=== PATIENT | male | born 1940 | race Caucasian/White ===

== ENCOUNTER → 2017-03-03 | Day surgery (SDC) | payer MEDICARE ==
[2017-03-02 15:53] VITALS: BMI 23.1
[~2017-03-03] MED LIST: Acetaminophen/Codeine 30-300mg Tablet ONE; Iopamidol-M 200 41% 20 ML VIAL ONE
[2017-03-03 07:59] VITALS: TEMP 97.4
--- NOTE | 2017-03-03 11:29 | RAD ---
CERVICAL SPINE MYELOGRAM: Date: 03/03/17 HISTORY: Cervical radiculopathy. COMPARISON: None. FINDINGS: Initial 2 view rag production worker cervical spine radiograph demonstrates extensive degenerative change with poste rior element hypertrophy. Note is made of an incompletely evaluated left-sided defibrillator. Two rag production worker views of the lumbar spine demonstrate a significant fusion throughout the lumbar spine wit h near complete effusion of the posterior elements. Despite multiple attempts, unsuccessful lumbar puncture. Needle was advanced at multiple levels. How ever, CSF did not flow into the hub of the needle. Myelogram could not be performed. TECHNIQUE: Consent obtained to perform a lumbar puncture for intrathecal contrast administration. Patient's samantha k was evaluated. Access into the thecal sac was attempted at multiple levels. However, advancement o f the needle was limited. At L5-S1, the needle did appear to go beyond the facet. However, flow of C SF was not obtained. There were no immediate postprocedural complications. IMPRESSION: Unsuccessful lumbar puncture due to sever fusion of the posterior elements. Correlation made with [facility] CT from 03/17/09 does not demonstrate any access points. Therefore, CT guided lumbar puncture would not be feasible. Results of study discussed with Dr. Romo on 03/03/17 at 0936 hours. CODE CR. POS: [facility]
--- NOTE | 2017-03-03 16:21 | CT ---
CERVICAL SPINE ATTEMPTED MYELOGRAM AND POST MYELOGRAPHIC CT: 03/03/17 HISTORY: Patient with cardiac pacing device with arm weakness, new onset. We have been asked to perform cervi maren spine myelogram. C1-2 myelography was attempted. RADIATION DOSIMETRY: 8.7 minutes of fluoroscopy and 23.4 Gy*cm2 DAP. Informed consent was obtained from the patient and his . The L1-2 areas was prepped and draped i n the usual sterile manner. A 15 lidocaine solution was used to anesthetize the overlying soft tiss ues. A 22 gauge spinal needle was placed along the posterior aspect of the C1-2 spinal canal. Approx imately 5 mL of contrast was injected. This was seen opacifying the central canal. The patient was t hen taken to CT scanner where postprocedure CT was performed. On CT, it is noted that the contrast is within the epidural space rather than the subarachnoid space . C1-2: Unremarkable. C2-3: There is a broad based disc osteophyte complex at C2-3 compressing the thecal sac. Bilateral f acet hypertrophy is seen. This results in moderate to severe right C2-3 neural foraminal narrowing. The left neural foramen is patent. The patient has extensive multilevel spinal stenosis. It is not surprisingly that I could not enter the subarachnoid space due to the severe multilevel stenosis of this patient resulting in a minimal subarachnoid space outside of the cord. C3-4: There is disc desiccation. There is a broad based disc osteophyte complex centrally resulting in critical C3-4 central spinal stenosis with anterior compression of the spinal cord at C3-4. There is also moderate to severe bilateral C3-4 neural foraminal narrowing due to facet hypertrophy as we ll as uncovertebral osteophyte hypertrophy. C4-5: There is a broad based disc osteophyte complex centrally compressing the thecal sac resulting in severe central spinal stenosis and thecal sac compression. There is severe right and moderate to severe left C4-5 neural foraminal narrowing due to uncovertebral as well as facet hypertrophy. C5-6: There is disc desiccation and disc space height loss. There is an extensive central and right paracentral bridging osteophyte posteriorly as well as anteriorly. The posterior osteophyte compress es the thecal sac resulting in moderate to severe right and moderate left sided lateral recess steno sis. There is moderate to severe right and moderate left sided C5-6 neural foraminal narrowing due t o uncovertebral osteophyte hypertrophy. C6-7: Broad based disc osteophyte complex is seen compressing the thecal sac resulting in moderate t o severe central spinal stenosis. There is moderate to severe right and moderate left sided C6-7 tri ral foraminal narrowing due to uncovertebral osteophyte hypertrophy. C7-T1: Broad based posterior osteophyte is seen. No significant central stenosis seen. The neural fo ramen are patent. There is also severe right distal common carotid and proximal right ICA calcifications. Postsurgical changes seen in the left carotid. IMPRESSION: Severe multilevel C2-3, C3-4, C4-5 and C5-6 and to a lesser degree C6-7 central spinal stenosis. Mul tilevel neural foraminal narrowing also seen. POS: MED
== END ==
LOC: RAD 06:42
PROVIDERS: ATTEND Neurological Surgery
DX: M48.02 Spinal stenosis, cervical region (principal); M54.12 Radiculopathy, cervical region; M19.019 Primary osteoarthritis, unspecified shoulder; E11.9 Type 2 diabetes mellitus without complications; I10 Essential (primary) hypertension; J44.9 Chronic obstructive pulmonary disease, unspecified; I25.10 Atherosclerotic heart disease of native coronary artery without angina pectoris; G14 Postpolio syndrome; Z95.5 Presence of coronary angioplasty implant and graft; Z98.890 Other specified postprocedural states; Z87.891 Personal history of nicotine dependence; Z79.4 Long term (current) use of insulin; Z79.82 Long term (current) use of aspirin; Z79.899 Other long term (current) drug therapy
CPT/HCPCS: 62302; 72126; 77003

== ENCOUNTER 2017-04-20 09:29 | Inpatient (IN) | payer MEDICARE ==
[2017-04-20] MEDS ORDERED: Bacitracin Zinc Ointment 30 gm TUBE ONE ×2 (12:11→12:37)
[2017-04-20] MEDS ORDERED: CEFAZOLIN/Water 2 GM/20 ML SYRINGE ONE (12:11)
[2017-04-20 12:16] LABS: #Eosinphils 0.1 thou/uL (0.0-0.7); #Lymphocytes 2.2 thou/uL (1.20-3.40); #Monocytes 0.9 thou/uL (0.11-0.59); %Basophils 0.5 % (0.0-1.0); %Eosinophils 1.6 % (0.0-10.0); %Lymphocytes 26.8 % (21.0-51.0); %Monocytes 10.4 % (0.0-10.0); Hematocrit 33.4 % (42.0-52.0); Mean Platelet Volume 6.4 fL (7.4-10.4); Red Blood Cell (RBC) Count 3.62 mill/uL (4.70-6.10); White Blood Cell (WBC) Count 8.1 thou/uL (4.8-10.8)
[2017-04-20 12:37] LABS: Anion Gap 14 mmol/L (10-20); BUN (Urea Nitrogen) 24 mg/dL (8.4-25.7); Calc. Creatinine Clearance 117 mL/min (70-130); Calcium 9.9 mg/dL (7.8-10.44); Carbon Dioxide 24 mmol/L (23-31); Chloride 104 mmol/L (98-107); Estimated GFR-MDRD Greater than 90
[2017-04-20] MEDS ORDERED: Fentanyl 250 MCG/5 ML VIAL ONE (12:54)
[2017-04-20] MEDS ORDERED: Lidocaine 1% PF 5 ML VIAL ONE (13:23)
[2017-04-20] MEDS ORDERED: PHENYLEPHRINE-NS 100 MCG/ML 10 ML SYRINGE ONE (13:23)
[2017-04-20] MEDS ORDERED: Dexamethasone 20 MG/5 ML VIAL ONE (13:23)
[2017-04-20] MEDS ORDERED: ePHEDrine/0.9% NaCl/PF SYRINGE 50 mg/10 ml ONE (13:23)
[2017-04-20] MEDS ORDERED: Ondansetron HCl/PF 4 MG/2 ML Vial ONE (13:23)
[2017-04-20] MEDS ORDERED: Glycopyrrolate 0.2 MG/ML 5 ML SYRINGE ONE (13:23)
[2017-04-20] MEDS ORDERED: Propofol 200 MG/20 ML VIAL ONE (13:23)
[2017-04-20] MEDS ORDERED: Sodium Chloride 0.9% 10 ML ONE (13:32)
[2017-04-20] MEDS ORDERED: Phenylephrine 10 MG/NS 250 ML 250 ML ONE (13:42)
[2017-04-20] MEDS ORDERED: Fentanyl 100 MCG/2 ML VIAL ONE ×3 (15:23→16:30)
[2017-04-20] MEDS ORDERED: Acetaminophen/Codeine 30-300mg Tablet PO PRN (15:54)
[2017-04-20] MEDS ORDERED: PROVENTIL INHALER 6.7 G (200 INHALATIONS) INH PRN (15:54)
[2017-04-20] MEDS ORDERED: Ketorolac Tromethamine 30 MG/ML VIAL ONE (15:54)
[2017-04-20] MEDS ORDERED: CHLORPHENIRAMINE MALEATE 4 MG TABLET PO PRN (15:57)
[2017-04-20] MEDS ORDERED: cloNIDine 0.1 MG TAB PO PRN (16:01)
[2017-04-20] MEDS ORDERED: Milk Of Magnesia 30 ML UDCUP PO PRN (16:02)
[2017-04-20] MEDS ORDERED: diphenhydrAMINE 50 MG/ML VIAL IVP PRN (16:02)
[2017-04-20] MEDS ORDERED: Mag-Al 1200 mg/1200 mg/30 ML UDCUP PO PRN (16:02)
[2017-04-20] MEDS ORDERED: diphenhydrAMINE 25 MG CAP PO PRN (16:02)
[2017-04-20] MEDS ORDERED: Meperidine HCl/PF 25 MG/ML VIAL SLOW IVP PRN (16:02)
[2017-04-20] MEDS ORDERED: Bisacodyl 10 MG SUPP PR PRN (16:02)
[2017-04-20] MEDS ORDERED: HYDROcodone/Acetaminophen 10/325 mg Tablet PO PRN (16:02)
[2017-04-20] MEDS ORDERED: Promethazine HCl 25 MG/ML VIAL IM PRN (16:02)
[2017-04-20] MEDS ORDERED: Promethazine HCl 12.5 MG SUPP PR PRN (16:02)
[2017-04-20] MEDS ORDERED: Ondansetron HCl/PF 4 MG/2 ML Vial SLOW IVP PRN (16:03)
[2017-04-20] MEDS ORDERED: Sodium Chloride 0.65% Nasal 44 ML BOT EA NARE PRN (16:11)
[2017-04-20] MEDS ORDERED: Promethazine HCl 25 MG/ML VIAL IM/IV PRN (16:30)
[2017-04-20] MEDS ORDERED: Ondansetron HCl/PF 4 MG/2 ML Vial IVP PRN (16:30)
--- NOTE | 2017-04-20 17:05 | OP ---
DATE OF OPERATION: 04/20/2017 SURGEON: Vlad Romo M.D. HOTEL ENGINEER: Gelacio Lee PROCEDURES: C2 through C7 laminectomy, posterolateral arthrodesis C5-C7, demineralized bone matrix, local morselized autograft, lateral mass screw instrumentation C5-C7. PROCEDURE IN DETAIL: The patient was brought into the operating room, intubated. He was rolled in the prone position on gel-filled chest rolls with the head fixed in the donna head mva reactor operator in neutra l position. Incision made in the midline exposing C2 through C7 and our level was confirmed by x-ra y. We performed complete C7, complete C6, complete C5, complete C4, and complete C3 and inferior C2 laminectomies, completely decompressing the neural elements. Next, lateral mass screws were placed at right C5, right C6 and right C7 connected by a jamar which was secured by nuts that were final tig htened. The wound was then extensively irrigated, immaculate hemostasis was secured. A combination of demineralized bone matrix and local morselized autograft was laid over the left laminar and post erolateral surfaces for the purpose of arthrodesis. Vancomycin powder was applied and the wound was closed in anatomic layers over a drain.
[2017-04-20] MEDS: Fish Oil 1,000 MG CAP PO SCH ×2 (17:42→20:07)
[2017-04-20] MEDS: Sodium Chloride 0.9% 1,000 ML IV SCH (17:42)
[2017-04-20] MEDS: metFORMIN 500 MG TAB PO SCH (17:49)
[2017-04-20] MEDS: Ketorolac Tromethamine 30 MG/ML VIAL IVP SCH ×2 (17:52→23:57)
[2017-04-20 17:58] VITALS: BMI 23.8
[2017-04-20] MEDS: HYDROcodone/Acetaminophen 10/325 mg Tablet PO PRN (20:04)
[2017-04-20] MEDS: Carvedilol 6.25 MG TAB PO SCH (20:07)
[2017-04-20] MEDS: CEFAZOLIN/Water 2 GM/20 ML SYRINGE SLOW IVP SCH (20:07)
[2017-04-20] MEDS: Mometasone/Formoterol 120 PUFF INHALER INH SCH (21:00)
[2017-04-20] MEDS: Lisinopril/Hydrochlorothiazide 20 mg/12.5 mg Tablet PO SCH (21:21)
[2017-04-20] MEDS: Insulin Detemir 100 UNITS/ML 25 UNITS in Pre-Filled Syringe 1 EACH SC SCH (21:22)
[2017-04-20] MEDS ORDERED: LIRAGLUTIDE (VICTOZA) SC SCH (21:45)
--- NOTE | 2017-04-20 22:11 | EKG ---
Test Reason : PREOP Blood Pressure : / mmHG Vent. Rate : 068 BPM Atrial Rate : 068 BPM P-R Int : 114 ms QRS Dur : 164 ms QT Int : 452 ms P-R-T Axes : 075 168 006 degrees QTc Int : 480 ms Electronic ventricular pacemaker When compared with ECG of 20-FEB-2017 15:51, Vent. rate has increased BY 3 BPM Confirmed by NIKOLAI OLEA, DR. Gee ([id number]) on 04/20/2017 10:10:59 PM Referred By: AUGUSTIN Confirmed By:DR. Gerard MENCHACA MD
[2017-04-21] MEDS: HYDROcodone/Acetaminophen 10/325 mg Tablet PO PRN ×2 (03:32→12:44)
[2017-04-21] MEDS: Ketorolac Tromethamine 30 MG/ML VIAL IVP SCH ×4 (06:32→23:28)
[2017-04-21] MEDS: Sodium Chloride 0.9% 1,000 ML IV SCH ×3 (06:33→23:38)
[2017-04-21] MEDS: CEFAZOLIN/Water 2 GM/20 ML SYRINGE SLOW IVP SCH ×3 (06:34→21:19)
[2017-04-21] MEDS: Mometasone/Formoterol 120 PUFF INHALER INH SCH ×2 (07:32→19:40)
[2017-04-21] MEDS: Fish Oil 1,000 MG CAP PO SCH ×4 (07:52→21:19)
[2017-04-21] MEDS: Potassium Chloride 10 MEQ TAB PO SCH (07:53)
[2017-04-21] MEDS: Fenofibrate Nanocrystallized 145 MG TAB PO SCH (07:53)
[2017-04-21] MEDS: Loratadine 10 MG TAB PO SCH (07:53)
[2017-04-21] MEDS: metFORMIN 500 MG TAB PO SCH (07:54)
[2017-04-21] MEDS: Lisinopril/Hydrochlorothiazide 20 mg/12.5 mg Tablet PO SCH ×2 (07:54→21:18)
[2017-04-21] MEDS: Carvedilol 6.25 MG TAB PO SCH ×2 (07:55→21:18)
[2017-04-21] MEDS: Cyanocobalamin (Vitamin B-12) 1,000 MCG TAB PO SCH (07:55)
[2017-04-21] MEDS: Furosemide 20 MG TAB PO SCH (07:56)
[2017-04-21] MEDS: Insulin Detemir 100 UNITS/ML 25 UNITS in Pre-Filled Syringe 1 EACH SC SCH (07:56)
[2017-04-21] MEDS: LIRAGLUTIDE (VICTOZA) SC SCH (07:57)
[2017-04-21] MEDS ORDERED: Dextrose 50% Abboject 50 ML SYRINGE SLOW IVP PRN (09:17)
[2017-04-21] MEDS ORDERED: Dextrose 5% in Water 1,000 ML IV PRN (09:17)
[2017-04-21] MEDS ORDERED: HumaLOG 300 UNITS/3 ML VIAL SC PRN (09:17)
[2017-04-21] MEDS ORDERED: hydrALAZINE 20 MG/ML VIAL SLOW IVP PRN (09:27)
--- NOTE | 2017-04-21 14:12 | CON ---
DATE OF CONSULTATION: 04/21/2017 CONSULTING PHYSICIAN: Dr. Romo. REASON FOR ADMISSION: Neck pain status post C2-C11 laminectomy, posterolateral arthrodesis of C5-C7 . REASON FOR CONSULTATION: Medical management. HISTORY OF PRESENT ILLNESS: This is a 77-year-old pleasant gentleman who was seen by Dr. Clarissa mahmood his last visit to our hospital on 02/2017 where they consulted for the neck pain and scheduled outpatient followup. He was brought in today for surgery and he has been admitted to the ICU post- surgery. I have been consulted for medical management. Patient right now is awake and alert, says the pain control is good. He denies any fever, chills, nausea or vomiting. PAST MEDICAL HISTORY: Significant for diabetes, hypertension, hyperlipidemia, COPD, coronary artery disease status post CABG. PAST SURGICAL HISTORY: Left carotid surgery x2 as well as CABG and now this surgery. SOCIAL HISTORY: The patient is a former smoker. Denies any recreational drug use or alcohol abuse. FAMILY HISTORY: Significant for cardiovascular disease. CURRENT MEDICATIONS: Include neb treatments, cefazolin, Coreg 6.25 p.o. b.i.d., fish oil, fenofibra te 145 p.o. daily, Lasix 20 mg p.o. daily, [place] for pain control, insulin, Levemir 25 units b.i.d., lisinopril/hydrochlorothiazide 20/12.5 and Crestor 5 mg p.o. at bedtime. ALLERGIES: MORPHINE. REVIEW OF SYSTEMS: Significant for history of neck pain. There is no fever, no chills, no headache , no eye pain, no hearing loss, no latencies. No cough, no chest pain, diarrhea, dysuria, or polyur ia. No memory or mood changes. PHYSICAL EXAMINATION: VITAL SIGNS: The patient's blood pressure right now is 140/54, pulse is 64 and temperature is 97.4. GENERAL: The patient is lying in bed in no apparent distress. HEENT: Atraumatic and normocephalic. Pupils are equally round and reactive to light. Extraocular movements intact. Mucous membranes are moist. NECK: No JVD. Deferred to surgery. CHEST: She has breath sounds. There are no rales or rhonchi. HEART: S1 and S2. No murmurs or gallops. ABDOMEN: Soft and obese. EXTREMITIES: No cyanosis, clubbing or edema. Distal pulses present. NEUROLOGICAL: Alert, awake and oriented. No cranial deficits. No sensorimotor deficits. LABORATORY DATA: WBC count is 8.1, hemoglobin is 10.7 and platelet count is 312. Sodium is 138, cr eatinine is 0.6, potassium is 3.9 and glucose is 292. ASSESSMENT AND PLAN: 1. Diabetes mellitus. I will decrease the dose of the Levemir from 25 b.i.d. to 10 b.i.d. and put the patient on moderate insulin sliding scale till the patient starts eating completely. We will do glucose checks before meals at bedtime and increase Levemir to home dose. 2. Hypertension. We will do p.r.n. hydralazine and continue home medications. 3. Neck pain status post C2-C7 laminectomy. 4. Follow up with primary's plan, coronary artery disease status post coronary artery bypass graft appears to be stable. 5. Chronic obstructive pulmonary disease, stable. 6. Hyperlipidemia, stable. The patient is on sequential compression devices for deep venous thromb osis prophylaxis. Thanks Dr. Romo, for letting me participate in this patient's care. I will follow with you and make recommendations as clinical course evolves.
--- NOTE | 2017-04-21 16:52 | PDOC.EVN ---
Event Note - Event Note Event Note: pt has uti due to ecoli f/u c/s start rocephin
[2017-04-21] MEDS ORDERED: cefTRIAXone\\ROCEPHIN 1 GM in Sodium Chloride 0.9% 100 ML IVPB SCH (17:00)
[2017-04-21] MEDS ORDERED: cefTRIAXone\\ROCEPHIN 1 GM, Syringe 0.4 ML in Sterile Water 9.6 ML SLOW IVP SCH (18:30)
[2017-04-21] MEDS: Insulin Detemir 100 UNITS/ML 10 UNITS in Pre-Filled Syringe 1 EACH SC SCH (21:19)
[2017-04-22] MEDS: HYDROcodone/Acetaminophen 10/325 mg Tablet PO PRN ×2 (04:46→18:26)
[2017-04-22] MEDS: tiZANidine HCl 4 MG TAB PO PRN (04:46)
[2017-04-22] MEDS: CEFAZOLIN/Water 2 GM/20 ML SYRINGE SLOW IVP SCH (04:47)
[2017-04-22 05:46] LABS: Anion Gap 9 mmol/L (10-20); BUN (Urea Nitrogen) 29 mg/dL (8.4-25.7); BUN/Creatinine Ratio 42.65; Calc. Creatinine Clearance 106 mL/min (70-130); Calcium 9.4 mg/dL (7.8-10.44); Carbon Dioxide 29 mmol/L (23-31); Chloride 102 mmol/L (98-107); Estimated GFR-MDRD Greater than 90; Phosphorus 3.2 mg/dL (2.3-4.7)
[2017-04-22] MEDS: Ketorolac Tromethamine 30 MG/ML VIAL IVP SCH ×2 (06:02→14:00)
[2017-04-22] MEDS: Mometasone/Formoterol 120 PUFF INHALER INH SCH ×2 (06:21→19:13)
[2017-04-22] MEDS: Loratadine 10 MG TAB PO SCH (08:33)
[2017-04-22] MEDS: Cyanocobalamin (Vitamin B-12) 1,000 MCG TAB PO SCH (08:33)
[2017-04-22] MEDS: Fish Oil 1,000 MG CAP PO SCH ×6 (08:33→20:53)
[2017-04-22] MEDS: Potassium Chloride 10 MEQ TAB PO SCH (08:34)
[2017-04-22] MEDS: LIRAGLUTIDE (VICTOZA) SC SCH (09:00)
[2017-04-22] MEDS: Furosemide 20 MG TAB PO SCH (09:00)
[2017-04-22] MEDS: Lisinopril/Hydrochlorothiazide 20 mg/12.5 mg Tablet PO SCH ×2 (09:00→20:52)
[2017-04-22] MEDS: Insulin Detemir 100 UNITS/ML 10 UNITS in Pre-Filled Syringe 1 EACH SC SCH ×2 (09:00→21:11)
[2017-04-22] MEDS: Fenofibrate Nanocrystallized 145 MG TAB PO SCH (09:00)
[2017-04-22] MEDS: Carvedilol 6.25 MG TAB PO SCH ×2 (09:00→20:52)
[2017-04-22] MEDS ORDERED: Meropenem 1 GM in Sodium Chloride 0.9% 100 ML IVPB SCH (14:00)
[2017-04-22] MEDS: Sodium Chloride 0.9% 1,000 ML IV SCH (15:17)
[2017-04-22] MEDS: MEROPENEM 1 GM/50 ML 1 GM in Premix Bag 1 BAG IVPB SCH ×2 (15:20→21:04)
--- NOTE | 2017-04-22 16:00 | PDOC.PN ---
- Subjective Encounter Start Date: 04/22/17 Encounter Start Time: 15:58 Patient seen and examined. No new complaints. No overnight events - Objective MAR Reviewed: Yes Vital Signs & Weight: Vital Signs (12 hours) Temp Pulse Resp BP BP Pulse Ox 04/22/17 11:40 97.7 F 66 14 152/69 H 98 04/22/17 09:00 66 124/65 04/22/17 08:17 97.6 F 60 16 119/75 98 04/22/17 06:21 84 16 99 04/22/17 04:21 97.5 F L 69 20 165/71 H 97 Weight Admit Weight 176 lb Weight 175 lb 14.862 oz Most Recent Monitor Data Heart Rate from ECG 62 NIBP 151/51 NIBP BP-Mean 66 Respiration from ECG 16 SpO2 99 I&O: 04/21/17 04/22/17 04/23/17 06:59 06:59 06:59 Intake Total 2117 3569 Output Total 780 2960 Balance 1337 609 Result Diagrams: 04/20/17 12:09 04/22/17 04:33 Additional Labs: Accuchecks 04/22/17 04/22/17 04/22/17 15:47 10:37 05:14 POC Glucose 120 H 131 H 122 H 04/21/17 04/21/17 20:42 15:58 POC Glucose 124 H 111 H Phys Exam - Physical Examination Constitutional: NAD HEENT: PERRLA Neck: no JVD Respiratory: no wheezing Cardiovascular: RRR, no significant murmur Gastrointestinal: non-tender Musculoskeletal: pulses present Neurological: moves all 4 limbs Psychiatric: A&O x 3 Dx/Plan (1) UTI (urinary tract infection) Status: Acute Comment: start merrem for ecoli (2) Neck pain Code(s): M54.2 - CERVICALGIA Status: Acute (3) COPD (chronic obstructive pulmonary disease) Status: Chronic (4) Diabetes type 2, controlled Code(s): E11.9 - TYPE 2 DIABETES MELLITUS WITHOUT COMPLICATIONS Status: Chronic (5) Diastolic dysfunction Code(s): I51.9 - HEART DISEASE, UNSPECIFIED Status: Chronic (6) Dyslipidemia Code(s): E78.5 - HYPERLIPIDEMIA, UNSPECIFIED Status: Chronic Comment: Statin (7) LIBBY (obstructive sleep apnea) Code(s): G47.33 - OBSTRUCTIVE SLEEP APNEA (ADULT) (PEDIATRIC) Status: Chronic Comment: (8) PAD (peripheral artery disease) Code(s): I73.9 - PERIPHERAL VASCULAR DISEASE, UNSPECIFIED Status: Chronic - Plan * cont current treatment * cont merrem * f/u nsx plan
[2017-04-23] MEDS: HYDROcodone/Acetaminophen 10/325 mg Tablet PO PRN ×4 (00:29→17:26)
[2017-04-23 05:22] LABS: #Eosinphils 0.2 thou/uL (0.0-0.7); #Lymphocytes 1.9 thou/uL (1.20-3.40); #Neutrophils 5.8 thou/uL (1.40-6.50); %Basophils 0.4 % (0.0-1.0); %Eosinophils 1.8 % (0.0-10.0); %Lymphocytes 21.4 % (21.0-51.0); %Monocytes 10.9 % (0.0-10.0); Hematocrit 31.1 % (42.0-52.0); Mean Platelet Volume 6.8 fL (7.4-10.4); Red Blood Cell (RBC) Count 3.36 mill/uL (4.70-6.10); White Blood Cell (WBC) Count 8.9 thou/uL (4.8-10.8)
[2017-04-23 05:26] LABS: Anion Gap 9 mmol/L (10-20); BUN (Urea Nitrogen) 23 mg/dL (8.4-25.7); Calc. Creatinine Clearance 118 mL/min (70-130); Calcium 9.3 mg/dL (7.8-10.44); Carbon Dioxide 29 mmol/L (23-31); Chloride 103 mmol/L (98-107); Estimated GFR-MDRD Greater than 90; Phosphorus 2.8 mg/dL (2.3-4.7)
[2017-04-23] MEDS: MEROPENEM 1 GM/50 ML 1 GM in Premix Bag 1 BAG IVPB SCH ×3 (05:34→20:19)
[2017-04-23] MEDS: Mometasone/Formoterol 120 PUFF INHALER INH SCH ×2 (06:23→19:10)
[2017-04-23] MEDS: Furosemide 20 MG TAB PO SCH (09:32)
[2017-04-23] MEDS: Lisinopril/Hydrochlorothiazide 20 mg/12.5 mg Tablet PO SCH ×2 (09:32→20:14)
[2017-04-23] MEDS: Cyanocobalamin (Vitamin B-12) 1,000 MCG TAB PO SCH (09:33)
[2017-04-23] MEDS: Loratadine 10 MG TAB PO SCH (09:33)
[2017-04-23] MEDS: Carvedilol 6.25 MG TAB PO SCH ×2 (09:33→20:20)
[2017-04-23] MEDS: Potassium Chloride 10 MEQ TAB PO SCH (09:33)
[2017-04-23] MEDS: Fish Oil 1,000 MG CAP PO SCH ×4 (09:33→20:20)
[2017-04-23] MEDS: Fenofibrate Nanocrystallized 145 MG TAB PO SCH (09:33)
[2017-04-23] MEDS: Insulin Detemir 100 UNITS/ML 10 UNITS in Pre-Filled Syringe 1 EACH SC SCH ×3 (09:33→20:57)
[2017-04-23] MEDS: LIRAGLUTIDE (VICTOZA) SC SCH (09:34)
[2017-04-23] MEDS: Cephalexin 250 MG CAP PO SCH ×3 (13:32→20:20)
[2017-04-23] MEDS: Sodium Chloride 0.9% 1,000 ML IV SCH ×2 (13:50→17:13)
--- NOTE | 2017-04-23 14:08 | PDOC.PN ---
- Subjective Encounter Start Date: 04/23/17 Encounter Start Time: 14:06 c/o neck pain no dysuria will change juarez no n/v no f/c - Objective MAR Reviewed: Yes Vital Signs & Weight: Vital Signs (12 hours) Temp Pulse Pulse Resp BP BP BP 04/23/17 13:34 76 159/75 H 04/23/17 11:40 97.9 F 83 14 145/75 H 04/23/17 09:33 167/71 H 04/23/17 09:32 77 04/23/17 07:40 97.9 F 77 12 159/75 H 04/23/17 06:23 86 16 04/23/17 05:15 98.1 F 83 18 176/74 H Pulse Ox Pulse Ox 04/23/17 13:34 97 04/23/17 11:40 97 04/23/17 09:33 04/23/17 09:32 04/23/17 07:40 94 L 04/23/17 06:23 96 04/23/17 05:15 94 L Weight Admit Weight 176 lb Weight 175 lb 14.862 oz Most Recent Monitor Data Heart Rate from ECG 62 NIBP 151/51 NIBP BP-Mean 66 Respiration from ECG 16 SpO2 99 I&O: 04/22/17 04/23/17 04/24/17 06:59 06:59 06:59 Intake Total 3569 1000 Output Total 2960 2960 25 Balance 609 -1960 -25 Result Diagrams: 04/23/17 04:35 04/23/17 04:35 Additional Labs: Accuchecks 04/23/17 04/23/17 04/22/17 11:15 06:11 21:03 POC Glucose 137 H 100 112 H 04/22/17 15:47 POC Glucose 120 H Phys Exam - Physical Examination Constitutional: NAD HEENT: PERRLA Neck: no JVD Respiratory: no wheezing Cardiovascular: no significant murmur Gastrointestinal: non-tender Musculoskeletal: pulses present Neurological: moves all 4 limbs Psychiatric: A&O x 3 Dx/Plan (1) UTI (urinary tract infection) Status: Acute Comment: start merrem for ecoli (2) Neck pain Code(s): M54.2 - CERVICALGIA Status: Acute (3) COPD (chronic obstructive pulmonary disease) Status: Chronic (4) Diabetes type 2, controlled Code(s): E11.9 - TYPE 2 DIABETES MELLITUS WITHOUT COMPLICATIONS Status: Chronic (5) Diastolic dysfunction Code(s): I51.9 - HEART DISEASE, UNSPECIFIED Status: Chronic (6) Dyslipidemia Code(s): E78.5 - HYPERLIPIDEMIA, UNSPECIFIED Status: Chronic Comment: Statin (7) LIBBY (obstructive sleep apnea) Code(s): G47.33 - OBSTRUCTIVE SLEEP APNEA (ADULT) (PEDIATRIC) Status: Chronic Comment: (8) PAD (peripheral artery disease) Code(s): I73.9 - PERIPHERAL VASCULAR DISEASE, UNSPECIFIED Status: Chronic - Plan * change ann * will d/c saige on dicharge to rehab * continue current mx
[2017-04-23] MEDS: tiZANidine HCl 4 MG TAB PO PRN (14:55)
[2017-04-24] MEDS: MEROPENEM 1 GM/50 ML 1 GM in Premix Bag 1 BAG IVPB SCH (05:43)
[2017-04-24] MEDS: HYDROcodone/Acetaminophen 10/325 mg Tablet PO PRN ×3 (05:45→17:45)
[2017-04-24] MEDS: Mometasone/Formoterol 120 PUFF INHALER INH SCH ×2 (06:35→18:39)
[2017-04-24] MEDS: Cyanocobalamin (Vitamin B-12) 1,000 MCG TAB PO SCH (08:40)
[2017-04-24] MEDS: Cephalexin 250 MG CAP PO SCH ×4 (08:41→20:03)
[2017-04-24] MEDS: Lisinopril/Hydrochlorothiazide 20 mg/12.5 mg Tablet PO SCH ×2 (08:41→20:03)
[2017-04-24] MEDS: Furosemide 20 MG TAB PO SCH (08:41)
[2017-04-24] MEDS: Carvedilol 6.25 MG TAB PO SCH ×2 (08:41→20:02)
[2017-04-24] MEDS: Potassium Chloride 10 MEQ TAB PO SCH (08:41)
[2017-04-24] MEDS: Insulin Detemir 100 UNITS/ML 10 UNITS in Pre-Filled Syringe 1 EACH SC SCH ×2 (08:42→20:02)
[2017-04-24] MEDS: Loratadine 10 MG TAB PO SCH (08:42)
[2017-04-24] MEDS: Fenofibrate Nanocrystallized 145 MG TAB PO SCH (08:42)
[2017-04-24] MEDS: Fish Oil 1,000 MG CAP PO SCH ×4 (08:42→20:02)
[2017-04-24] MEDS: LIRAGLUTIDE (VICTOZA) SC SCH (08:43)
--- NOTE | 2017-04-24 12:39 | PDOC.PN ---
- Subjective Encounter Start Date: 04/24/17 Encounter Start Time: 12:37 Patient seen and examined. No new complaints. No overnight events - Objective MAR Reviewed: Yes Vital Signs & Weight: Vital Signs (12 hours) Temp Pulse Resp BP BP Pulse Ox 04/24/17 12:00 97.9 F 76 14 155/79 H 94 L 04/24/17 09:40 98.0 F 75 14 91 L 04/24/17 08:41 75 148/71 H 04/24/17 07:30 98.0 F 75 14 148/71 H 91 L 04/24/17 06:35 72 16 95 04/24/17 04:17 98.2 F 75 20 160/78 H 95 Weight Admit Weight 176 lb Weight 175 lb 14.862 oz Most Recent Monitor Data Heart Rate from ECG 62 NIBP 151/51 NIBP BP-Mean 66 Respiration from ECG 16 SpO2 99 I&O: 04/23/17 04/24/17 04/25/17 06:59 06:59 06:59 Intake Total 1000 1720 Output Total 2960 4200 Balance -1960 -2480 Result Diagrams: 04/23/17 04:35 04/23/17 04:35 Additional Labs: Accuchecks 04/24/17 04/24/17 04/23/17 10:41 06:02 20:50 POC Glucose 115 H 96 147 H 04/23/17 15:29 POC Glucose 114 H Phys Exam - Physical Examination Constitutional: NAD HEENT: PERRLA Neck: no JVD Respiratory: no wheezing Cardiovascular: no significant murmur Gastrointestinal: non-tender Musculoskeletal: pulses present Neurological: moves all 4 limbs Psychiatric: A&O x 3 Dx/Plan (1) UTI (urinary tract infection) Status: Acute Comment: start merrem for ecoli pt has chronic juarez for dificulty urination since 07/25 (2) Neck pain Code(s): M54.2 - CERVICALGIA Status: Acute (3) COPD (chronic obstructive pulmonary disease) Status: Chronic (4) Diabetes type 2, controlled Code(s): E11.9 - TYPE 2 DIABETES MELLITUS WITHOUT COMPLICATIONS Status: Chronic (5) Diastolic dysfunction Code(s): I51.9 - HEART DISEASE, UNSPECIFIED Status: Chronic (6) Dyslipidemia Code(s): E78.5 - HYPERLIPIDEMIA, UNSPECIFIED Status: Chronic Comment: Statin (7) LIBBY (obstructive sleep apnea) Code(s): G47.33 - OBSTRUCTIVE SLEEP APNEA (ADULT) (PEDIATRIC) Status: Chronic Comment: (8) PAD (peripheral artery disease) Code(s): I73.9 - PERIPHERAL VASCULAR DISEASE, UNSPECIFIED Status: Chronic - Plan * cont current mx * d/c merrem * case mx for help with placement
[2017-04-24] MEDS: Sodium Chloride 0.9% 1,000 ML IV SCH ×2 (13:33→20:10)
[2017-04-24] MEDS ORDERED: Meropenem 1 GM in Sodium Chloride 0.9% 100 ML IVPB SCH (14:00)
[2017-04-25] MEDS: HYDROcodone/Acetaminophen 10/325 mg Tablet PO PRN ×3 (00:18→16:45)
[2017-04-25] MEDS: Mometasone/Formoterol 120 PUFF INHALER INH SCH ×2 (06:45→18:03)
[2017-04-25] MEDS: LIRAGLUTIDE (VICTOZA) SC SCH (08:35)
[2017-04-25] MEDS: Insulin Detemir 100 UNITS/ML 10 UNITS in Pre-Filled Syringe 1 EACH SC SCH ×2 (08:36→21:55)
[2017-04-25] MEDS: Fish Oil 1,000 MG CAP PO SCH ×4 (08:36→21:44)
[2017-04-25] MEDS: Potassium Chloride 10 MEQ TAB PO SCH (08:36)
[2017-04-25] MEDS: Loratadine 10 MG TAB PO SCH (08:37)
[2017-04-25] MEDS: Fenofibrate Nanocrystallized 145 MG TAB PO SCH (08:37)
[2017-04-25] MEDS: Furosemide 20 MG TAB PO SCH (08:37)
[2017-04-25] MEDS: Carvedilol 6.25 MG TAB PO SCH ×2 (08:37→21:39)
[2017-04-25] MEDS: Cyanocobalamin (Vitamin B-12) 1,000 MCG TAB PO SCH (08:37)
[2017-04-25] MEDS: Lisinopril/Hydrochlorothiazide 20 mg/12.5 mg Tablet PO SCH ×2 (08:37→21:39)
[2017-04-25] MEDS: Cephalexin 250 MG CAP PO SCH ×4 (08:38→21:43)
--- NOTE | 2017-04-25 11:23 | PDOC.PN ---
- Subjective Encounter Start Date: 04/25/17 Encounter Start Time: 11:22 Patient seen and examined. No new complaints. No overnight events - Objective MAR Reviewed: Yes Vital Signs & Weight: Vital Signs (12 hours) Temp Pulse Resp BP BP Pulse Ox 04/25/17 08:37 98.0 F 68 14 130/73 92 L 04/25/17 07:45 98.0 F 68 14 130/73 92 L 04/25/17 06:45 71 16 97 04/25/17 03:44 97.9 F 83 16 125/75 95 04/24/17 23:41 98.5 F 79 17 167/72 H 91 L Weight Admit Weight 176 lb Weight 175 lb 14.862 oz Most Recent Monitor Data Heart Rate from ECG 62 NIBP 151/51 NIBP BP-Mean 66 Respiration from ECG 16 SpO2 99 I&O: 04/24/17 04/25/17 04/26/17 06:59 06:59 06:59 Intake Total 1720 510 Output Total 4200 5050 Balance -3380 -9574 Result Diagrams: 04/23/17 04:35 04/23/17 04:35 Additional Labs: Accuchecks 04/25/17 04/24/17 04/24/17 05:42 20:26 15:51 POC Glucose 112 H 121 H 135 H Phys Exam - Physical Examination Constitutional: NAD HEENT: PERRLA Neck: no JVD Respiratory: no rales Cardiovascular: no significant murmur Gastrointestinal: non-tender Musculoskeletal: pulses present Neurological: normal sensation Psychiatric: A&O x 3 Dx/Plan (1) UTI (urinary tract infection) Status: Acute Comment: start merrem for ecoli pt has chronic juarez for dificulty urination since 07/25 (2) Neck pain Code(s): M54.2 - CERVICALGIA Status: Acute (3) COPD (chronic obstructive pulmonary disease) Status: Chronic (4) Diabetes type 2, controlled Code(s): E11.9 - TYPE 2 DIABETES MELLITUS WITHOUT COMPLICATIONS Status: Chronic (5) Diastolic dysfunction Code(s): I51.9 - HEART DISEASE, UNSPECIFIED Status: Chronic (6) Dyslipidemia Code(s): E78.5 - HYPERLIPIDEMIA, UNSPECIFIED Status: Chronic Comment: Statin (7) LIBBY (obstructive sleep apnea) Code(s): G47.33 - OBSTRUCTIVE SLEEP APNEA (ADULT) (PEDIATRIC) Status: Chronic Comment: (8) PAD (peripheral artery disease) Code(s): I73.9 - PERIPHERAL VASCULAR DISEASE, UNSPECIFIED Status: Chronic - Plan * continue current mx * f/u surg plan
[2017-04-25] MEDS: Sodium Chloride 0.9% 1,000 ML IV SCH (16:04)
[2017-04-26] MEDS: HYDROcodone/Acetaminophen 10/325 mg Tablet PO PRN ×3 (02:38→14:08)
[2017-04-26] MEDS: Mometasone/Formoterol 120 PUFF INHALER INH SCH ×2 (06:54→19:25)
[2017-04-26] MEDS: Sodium Chloride 0.9% 1,000 ML IV SCH ×2 (08:01→20:01)
[2017-04-26] MEDS: Cephalexin 250 MG CAP PO SCH ×4 (09:37→20:57)
[2017-04-26] MEDS: Fenofibrate Nanocrystallized 145 MG TAB PO SCH (09:37)
[2017-04-26] MEDS: Furosemide 20 MG TAB PO SCH (09:38)
[2017-04-26] MEDS: Loratadine 10 MG TAB PO SCH (09:40)
[2017-04-26] MEDS: Fish Oil 1,000 MG CAP PO SCH ×4 (09:40→20:58)
[2017-04-26] MEDS: Carvedilol 6.25 MG TAB PO SCH ×2 (09:40→20:57)
[2017-04-26] MEDS: Potassium Chloride 10 MEQ TAB PO SCH (09:40)
[2017-04-26] MEDS: Cyanocobalamin (Vitamin B-12) 1,000 MCG TAB PO SCH (09:40)
[2017-04-26] MEDS: Lisinopril/Hydrochlorothiazide 20 mg/12.5 mg Tablet PO SCH ×2 (09:40→20:58)
[2017-04-26] MEDS: Insulin Detemir 100 UNITS/ML 10 UNITS in Pre-Filled Syringe 1 EACH SC SCH ×2 (09:41→20:58)
[2017-04-26] MEDS: LIRAGLUTIDE (VICTOZA) SC SCH (09:42)
--- NOTE | 2017-04-26 10:18 | PDOC.PN ---
- Subjective Encounter Start Date: 04/26/17 Encounter Start Time: 10:16 Patient seen and examined. No new complaints. No overnight events - Objective MAR Reviewed: Yes Vital Signs & Weight: Vital Signs (12 hours) Temp Pulse Resp BP Pulse Ox 04/26/17 06:54 78 15 97 04/26/17 04:25 98.2 F 73 17 147/79 H 94 L 04/25/17 23:44 98.2 F 76 16 144/75 H 93 L Weight Admit Weight 176 lb Weight 175 lb 14.862 oz Most Recent Monitor Data Heart Rate from ECG 62 NIBP 151/51 NIBP BP-Mean 66 Respiration from ECG 16 SpO2 99 I&O: 04/25/17 04/26/17 04/27/17 06:59 06:59 06:59 Intake Total 510 Output Total 5050 1100 Balance -4540 -1100 Result Diagrams: 04/23/17 04:35 04/23/17 04:35 Additional Labs: Accuchecks 04/26/17 04/25/17 04/25/17 05:43 20:38 16:02 POC Glucose 110 109 119 H 04/25/17 11:19 POC Glucose 118 H Phys Exam - Physical Examination Constitutional: NAD HEENT: PERRLA Neck: no JVD Respiratory: no wheezing Cardiovascular: no significant murmur Gastrointestinal: non-tender Musculoskeletal: pulses present Neurological: moves all 4 limbs Psychiatric: A&O x 3 Dx/Plan (1) UTI (urinary tract infection) Status: Acute Comment: start merrem for ecoli pt has chronic juarez for dificulty urination since 07/25 (2) Neck pain Code(s): M54.2 - CERVICALGIA Status: Acute (3) COPD (chronic obstructive pulmonary disease) Status: Chronic (4) Diabetes type 2, controlled Code(s): E11.9 - TYPE 2 DIABETES MELLITUS WITHOUT COMPLICATIONS Status: Chronic (5) Diastolic dysfunction Code(s): I51.9 - HEART DISEASE, UNSPECIFIED Status: Chronic (6) Dyslipidemia Code(s): E78.5 - HYPERLIPIDEMIA, UNSPECIFIED Status: Chronic Comment: Statin (7) LIBBY (obstructive sleep apnea) Code(s): G47.33 - OBSTRUCTIVE SLEEP APNEA (ADULT) (PEDIATRIC) Status: Chronic Comment: (8) PAD (peripheral artery disease) Code(s): I73.9 - PERIPHERAL VASCULAR DISEASE, UNSPECIFIED Status: Chronic - Plan * continue current rx * doing well * case mx to help with placement
[2017-04-27] MEDS: HYDROcodone/Acetaminophen 10/325 mg Tablet PO PRN (00:23)
[2017-04-27 05:29] LABS: #Eosinphils 0.1 thou/uL (0.0-0.7); #Lymphocytes 2.5 thou/uL (1.20-3.40); #Monocytes 1.3 thou/uL (0.11-0.59); #Neutrophils 6.9 thou/uL (1.40-6.50); %Basophils 0.4 % (0.0-1.0); %Eosinophils 1.3 % (0.0-10.0); %Lymphocytes 22.8 % (21.0-51.0); %Monocytes 12.2 % (0.0-10.0); Hematocrit 33.9 % (42.0-52.0); Mean Platelet Volume 6.2 fL (7.4-10.4); Red Blood Cell (RBC) Count 3.68 mill/uL (4.70-6.10); White Blood Cell (WBC) Count 10.8 thou/uL (4.8-10.8)
[2017-04-27 05:45] LABS: Anion Gap 11 mmol/L (10-20); BUN (Urea Nitrogen) 34 mg/dL (8.4-25.7); BUN/Creatinine Ratio 53.97; Calc. Creatinine Clearance 114 mL/min (70-130); Carbon Dioxide 29 mmol/L (23-31); Chloride 99 mmol/L (98-107); Estimated GFR-MDRD Greater than 90; Phosphorus 3.3 mg/dL (2.3-4.7)
[2017-04-27] MEDS: Mometasone/Formoterol 120 PUFF INHALER INH SCH (07:25)
[2017-04-27] MEDS: Carvedilol 6.25 MG TAB PO SCH (08:37)
[2017-04-27] MEDS: Cyanocobalamin (Vitamin B-12) 1,000 MCG TAB PO SCH (08:38)
[2017-04-27] MEDS: Cephalexin 250 MG CAP PO SCH ×2 (08:38→12:58)
[2017-04-27] MEDS: Fish Oil 1,000 MG CAP PO SCH ×2 (08:39→12:58)
[2017-04-27] MEDS: Fenofibrate Nanocrystallized 145 MG TAB PO SCH (08:39)
[2017-04-27] MEDS: Furosemide 20 MG TAB PO SCH (08:39)
[2017-04-27] MEDS: Loratadine 10 MG TAB PO SCH (08:40)
[2017-04-27] MEDS: Lisinopril/Hydrochlorothiazide 20 mg/12.5 mg Tablet PO SCH (08:40)
[2017-04-27] MEDS: Potassium Chloride 10 MEQ TAB PO SCH (08:41)
[2017-04-27] MEDS: Insulin Detemir 100 UNITS/ML 10 UNITS in Pre-Filled Syringe 1 EACH SC SCH (08:48)
[2017-04-27] MEDS: LIRAGLUTIDE (VICTOZA) SC SCH (08:49)
[2017-04-27 11:48] VITALS: BP 125/73; TEMP 97.9
--- NOTE | 2017-04-27 12:34 | PDOC.PN ---
- Subjective Encounter Start Date: 04/27/17 Encounter Start Time: 08:00 -: old records requested/rev Pt seen and examined earlier on rounds. Chart reviewed in its entirety. This is my first visit with this patient. Pt awaiting Insurance approval for Inpt Rehab. expect today Gael po,no F/v, no N/V/D/C, no CP or SOB. Pain well controlled. Weakness to R> L UE stable at bedside, updated to current plans and findings 10 point ROs performed and neg for all systems except as per HPI - Objective Resuscitation Status: FULL MAR Reviewed: Yes Vital Signs & Weight: Vital Signs (12 hours) Temp Pulse Resp BP BP Pulse Ox 04/27/17 11:45 97.9 F 64 18 125/73 97 04/27/17 08:46 97.6 F 69 14 145/77 H 97 04/27/17 08:40 70 131/71 04/27/17 08:37 131/71 04/27/17 08:00 97.6 F 69 14 04/27/17 07:25 70 12 04/27/17 04:00 98.2 F 90 16 131/71 94 L Weight Admit Weight 176 lb Weight 175 lb 14.862 oz Most Recent Monitor Data Heart Rate from ECG 62 NIBP 151/51 NIBP BP-Mean 66 Respiration from ECG 16 SpO2 99 I&O: 04/26/17 04/27/17 04/28/17 06:59 06:59 06:59 Intake Total 240 Output Total 1100 Balance -1100 240 Result Diagrams: 04/27/17 05:16 04/27/17 05:16 Additional Labs: Accuchecks 04/27/17 04/27/17 04/26/17 11:44 05:35 20:20 POC Glucose 139 H 122 H 125 H 04/26/17 16:08 POC Glucose 174 H Radiology Reviewed by me: Yes EKG Reviewed by me: Yes Phys Exam - Physical Examination Constitutional: NAD HEENT: PERRLA, moist MMs, sclera anicteric, oral pharynx no lesions Neck: no nodes, no JVD, supple, full ROM Respiratory: no wheezing, no rales, no rhonchi, clear to auscultation bilateral Cardiovascular: RRR, no rub HSM Alva 3/6 Gastrointestinal: soft, non-tender, no distention Musculoskeletal: pulses present, edema present Neurological: non-focal, normal sensation, moves all 4 limbs 3/5 strength to RUE, 4/5 to LUE, posterior right shoulder atrophy Lymphatic: no nodes Psychiatric: normal affect, A&O x 3 Skin: no rash, normal turgor, cap refill <2 seconds Deviation from normal: surgical incision well aproximated with reyes. C/D/I Dx/Plan (1) Cervical spinal stenosis Code(s): M48.02 - SPINAL STENOSIS, CERVICAL REGION Status: Acute (2) UTI (urinary tract infection) Status: Acute Comment: start merrem for ecoli pt has chronic juarez for dificulty urination since 07/25 (3) COPD (chronic obstructive pulmonary disease) Status: Chronic (4) Diabetes type 2, controlled Code(s): E11.9 - TYPE 2 DIABETES MELLITUS WITHOUT COMPLICATIONS Status: Chronic (5) Diastolic dysfunction Code(s): I51.9 - HEART DISEASE, UNSPECIFIED Status: Chronic (6) Dyslipidemia Code(s): E78.5 - HYPERLIPIDEMIA, UNSPECIFIED Status: Chronic Comment: Statin (7) LIBBY (obstructive sleep apnea) Code(s): G47.33 - OBSTRUCTIVE SLEEP APNEA (ADULT) (PEDIATRIC) Status: Chronic Comment: - Plan cont current plan of care, plan discussed w/ family, PT/OT, social media content manager * . to [facility] today. resume home meds on discharge/transfer.
--- NOTE | 2017-04-28 06:14 | DIS ---
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 Postoperatively, patient appeared to have improved strength in his left upper extremity slightly decreased in his right upper extremity. The remainder of his neurologic exam remained unchanged. He was tolerating his diet and began physical therapy during his inpatient stay. His pain was well controlled. His incision remained intact and dry. He was discharged to [facility] where he will continue to get rehab for severe cervical myelopathy. We have scheduled follow up appointment in our office in 2 weeks, and I have provided him prescriptions for Sheldon, zanaflex, and Keflex. I discussed precautions and further care. RUSLAN
== END 2017-04-27 16:18 | DRG 472 ==
LOC: SURG A 09:36 → CCU 14:34 → SURG A 04-21 10:36
PROVIDERS: ADMIT Neurological Surgery; ATTEND Neurological Surgery
PROC: 0RG2071 Fusion of 2 or more Cervical Vertebral Joints with Autologous Tissue Substitute, Posterior Approach, Posterior Column, Open Approach (ICD-10-PCS; principal; 2017-04-20)
PROC: 01N10ZZ Release Cervical Nerve, Open Approach (ICD-10-PCS; 2017-04-20)
DX: M47.12 Other spondylosis with myelopathy, cervical region (principal); N39.0 Urinary tract infection, site not specified; E11.9 Type 2 diabetes mellitus without complications; B96.20 Unspecified Escherichia coli [E. coli] as the cause of diseases classified elsewhere; G47.33 Obstructive sleep apnea (adult) (pediatric); I25.10 Atherosclerotic heart disease of native coronary artery without angina pectoris; Z75.1 Person awaiting admission to adequate facility elsewhere; I51.9 Heart disease, unspecified; I73.9 Peripheral vascular disease, unspecified
CPT/HCPCS: 36415; 36416; 76001; 80048; 80069; 85025; 87077; 87086; 87186; 93005; 93010; 94664; A4216; C1713; C1768; G8978-GP-CN; G8979-GP-CM; G8987-GO-CM; G8988-GO-CK; J0696; J1100; J1815; J1885; J2001; J2185; J2405; J2704; J3010; J3370; J3490; J7050

== ENCOUNTER 2017-05-06 15:51 | Outpatient (CLI) | payer MEDICARE ==
--- NOTE | 2017-05-06 16:21 | RAD ---
RADIOGRAPH CERVICAL SPINE 2 VIEWS: Date: 05/06/17 Time: 1606 hours HISTORY: 77-year-old male with cervical spondylosis, status post surgery. COMPARISON: CT of 03/03/17. There are no prior plain radiographs of the cervical spine for comparison. FINDINGS: There are new right-sided posterior element screws at C5, C6, and C7. There are new laminectomy defec ts at all levels from C2-3 through C7-T1. Again noted are the severe degenerative disc changes at C5- 6 and C6-7. Again noted are the severe bilateral degenerative facet changes at multiple levels. No pr evertebral soft tissue swelling. There are new dorsal midline skin reyes. Again noted are the multi ple surgical clips in the left anterior neck. IMPRESSION: 1. Very recent surgery: status post laminectomies throughout almost the entire cervical spine; and s tatus post right posterior element hardware placement at the lower cervical spine. 2. cervical spondylosis: High grade degenerative disc disease at lower levels and multilevel high gr woodrow facet osteoarthrosis. 3. Evidence of old, prior left carotid endarterectomy. GEGE [] POS: [facility]
== END 2017-05-06 15:52 | disposition home or self-care (01) ==
LOC: TBSIIMAG 15:51
PROVIDERS: ATTEND Physician Assistant
DX: M47.12 Other spondylosis with myelopathy, cervical region (principal); M50.00 Cervical disc disorder with myelopathy, unspecified cervical region; Z98.890 Other specified postprocedural states
CPT/HCPCS: 72040

== ENCOUNTER 2017-07-09 15:44 | Outpatient (CLI) | payer MEDICARE, MEDICAID ==
--- NOTE | 2017-07-09 16:28 | RAD ---
FOUR VIEWS OF THE CERVICAL SPINE 07/09/17 COMPARISON: 05/06/17. HISTORY: Re-evaluate cervical spine following surgery, cervical spondylosis with myelopathy. FINDINGS: Extensive bilateral laminectomy changes are seen from C3 level through cervicothoracic junction. Post erior fusion hardware overlies the C5, C6 and C7 vertebral bodies on the right with a vertically orie nted interlocking jamar. Hardware appears stable when compared to prior imaging. There is mild stable a nterolisthesis at C3-4 and C4-5 measuring in the 3 mm range at C3-4 and in the 5 mm range at C4-5. There is disc space narrowing with anterior osteophyte formation at C5-6 and C6-7. Multiple postoperative clips overlie the neck on the left, incompletely imaged transvenous pacing dev ice present. Frontal imaging demonstrates significant bilateral facet and uncovertebral osteophyte formation, most prominent at C3-4 and C4-5. No evidence for hardware failure. IMPRESSION: Extensive postoperative and degenerative change within the cervical spine as above. POS: [facility]
== END 2017-07-09 15:45 | disposition home or self-care (01) ==
LOC: TBSIIMAG 15:44
PROVIDERS: ATTEND Physician Assistant
DX: M47.12 Other spondylosis with myelopathy, cervical region (principal); Z98.1 Arthrodesis status
CPT/HCPCS: 72040

== ENCOUNTER 2017-10-07 14:54 | Outpatient (CLI) | payer MEDICARE, MEDICAID ==
--- NOTE | 2017-10-07 16:12 | RAD ---
FOUR VIEWS CERVICAL SPINE: 10/07/17 HISTORY: Followup surgery. COMPARISON: 07/09/10. FINDINGS: There is diffuse bone demineralization. Stable right sided posterior element screw at C5-C6 and C7. S table degenerative changes with osteophyte formation at C5-C6 and C6-C7. Stable anterolisthesis of C4 upon C5. No prevertebral soft tissue swelling. Limited evaluation of the predental space. Limited ev aluation of the cervicothoracic junction. Limited evaluation of the odontoid process on the open mout h projection. On the AP projection, mild facet hypertrophy is present. Surgical clips in the left nec k are noted. IMPRESSION: Stable cervical fusion changes. POS: [facility]
== END 2017-10-07 14:55 | disposition home or self-care (01) ==
LOC: TBSIIMAG 14:54
PROVIDERS: ATTEND Neurological Surgery
DX: M48.02 Spinal stenosis, cervical region (principal); Z98.1 Arthrodesis status
CPT/HCPCS: 72040

== ENCOUNTER 2017-12-24 13:33 | Outpatient (CLI) | payer MEDICARE, MEDICAID ==
--- NOTE | 2017-12-24 21:23 | HP ---
DATE OF SERVICE: 12/24/2017 HISTORY OF PRESENT ILLNESS: Mr. Al Bobby is a very pleasant 77-year-old gentleman accompanie d by his who presents to the [facility] for evaluation of a sacral ulceration which according to the patient's has been present since 02/2017. The patient also presents with diffuse superfi cial ulcerations of the scrotum, which according to the patient's have been present since spring of this year. For the sacral wound, the patient is presently receiving dressing changes of Medihone y, followed by calcium alginate for the scrotal lesions. The patient is receiving treatment with nys tatin, followed by Silvadene. Telfa is also applied to the scrotal lesions at the time of dressing c hanges. The patient was referred to the Wound Center by Dr. Sofy Contreras. PAST MEDICAL HISTORY: 1. Diabetes mellitus. 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 3. Hypertension. 4. Benign prostatic hypertrophy. 5. Coronary artery disease. 6. Peripheral vascular disease. 7. Chronic obstructive pulmonary disease. 8. Cardiomyopathy. 9. Obstructive sleep apnea. 10. Osteoarthritis. PAST SURGICAL HISTORY: 1. Spine surgery x2. 2. Aortobifemoral bypass. 3. Left carotid endarterectomy x2. 4. Coronary artery bypass grafting. 5. Cervical laminectomy. 6. Pacemaker/defibrillator placement. 7. Transurethral resection of periureteral sessile bladder lesion. MEDICATIONS: 1. Metformin. 2. Clopidogrel. 3. Fenofibrate. 4. Lisinopril. 5. Aspirin 81 mg. 6. Fish oil. 7. Acetaminophen. 8. Levemir. 9. Victoza. 10. Coreg. 11. Healthy Eyes 12. Claritin. 13. Rosuvastatin. 14. Klor-Con. 15. Lasix. 16. ProAir. 17. Symbicort. 18. Pentoxifylline. 19. Vitamin B12. 20. Clonidine. 21. Loratadine. 22. Tylenol with codeine. ALLERGIES: MORPHINE. SOCIAL HISTORY: Significant for tobacco use of approximately 3 packs of cigarettes per day for over 50 years. The patient states that he stopped smoking 7 years ago. The patient admits to the moderat e consumption of alcohol in the past. He states that currently he only rarely consumes alcohol. FAMILY HISTORY: Significant for diabetes mellitus. The patient states that his brother, father and mother were all diagnosed with diabetes mellitus. Family history is negative for coronary artery dis ease. PHYSICAL EXAMINATION: VITAL SIGNS: Temperature 98.3, pulse 86, respirations 19, blood pressure 123/58. Accu-Chek 104. GENERAL: A 77-year-old gentleman lying on table in examination room, in no acute distress. HEENT: Normocephalic, atraumatic. NECK: No nuchal rigidity. CHEST: Clear to auscultation. CARDIAC: Regular rate and rhythm. ABDOMEN: Soft. BACK: A sacral wound is present which measures approximately 1.2 x 2.1 cm. No purulent drainage is associated with the wound. No erythema of the skin surrounding the wound is present. No maceration of the skin of the periwound is noted. Pale granulation tissue is present within the wound margins. : Diffuse superficial ulcerations are present over the scrotum. No drainage serous or purulent is associated with any of the lesions. No scrotal erythema is appreciated. No maceration of the skin of the scrotum is noted. EXTREMITIES: No clubbing or cyanosis. ASSESSMENT AND PLAN: 1. Sacral wound and lesions of scrotum as described above. For the sacral wound, dressing changes o f Medihoney, 2 x 2 and bordered gauze will be initiated today. These dressing changes are to be perf ormed every other day after cleansing and irrigation at [facility]. For the scrotal wound, Synalar oin tment 0.025% will be prescribed for application after bathing and up to b.i.d. The patient and his w mode understand and are in agreement with the preceding treatment plan. The patient will return to [facility] when his returns from out of town. 2. Diabetes mellitus. The patient's Accu-Chek in clinic today is 104. The patient has been told th at for optimal wound healing, his blood glucoses should remain below 150. 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 4. Hypertension. 5. Benign prostatic hypertrophy. 6. Coronary artery disease. 7. Peripheral vascular disease. 8. Chronic obstructive pulmonary disease. 9. Congestive heart failure. 10. Obstructive sleep apnea. 11. Osteoarthritis.
== END 2017-12-24 13:34 | disposition home or self-care (01) ==
LOC: WCC 13:33
PROVIDERS: ATTEND Family Medicine
DX: S31.000D Unspecified open wound of lower back and pelvis without penetration into retroperitoneum, subsequent encounter (principal); N50.89 Other specified disorders of the male genital organs; E11.9 Type 2 diabetes mellitus without complications; I11.0 Hypertensive heart disease with heart failure; I50.9 Heart failure, unspecified; N40.0 Benign prostatic hyperplasia without lower urinary tract symptoms; A80.30 Acute paralytic poliomyelitis, unspecified; I25.10 Atherosclerotic heart disease of native coronary artery without angina pectoris; I73.9 Peripheral vascular disease, unspecified; J44.9 Chronic obstructive pulmonary disease, unspecified; G47.33 Obstructive sleep apnea (adult) (pediatric); M19.90 Unspecified osteoarthritis, unspecified site
CPT/HCPCS: 97139; 97602; G0463; 99204

== ENCOUNTER 2018-01-18 13:06 | Outpatient (CLI) | payer MEDICARE, OTHER ==
--- NOTE | 2018-01-18 14:39 | PRG ---
DATE OF SERVICE: 01/18/2018 HISTORY: Mr. Al Bobby is a very pleasant 77-year-old gentleman accompanied by his who pres ents to the Wound Center for evaluation of a sacral ulceration, which according to the patient's has been present since 02/2017. The patient also has superficial ulcerations of the scrotum in a di ffuse distribution, which according to the patient's have been present since spring of this year . Prior to being seen in the Wound Center, the patient received dressing changes of Medihoney follow ed by calcium alginate. For the scrotal lesions prior to being seen in the Wound Center, the patient received treatment with nystatin followed by Silvadene. Telfa was also applied to the scrotal lesio ns at the time of dressing changes. Mr. Bobby was referred to the Wound Center by Dr. Sofy Contreras . PHYSICAL EXAMINATION: VITAL SIGNS: Temperature 97.7, pulse 78, respirations 18, blood pressure 175/74. Accu-Chek 116. BACK: A sacral wound is present, which measures approximately 2.3 x 1.5 cm. Granulation tissue is p resent within the wound margins. The quality of the granulation tissue has improved since the patien t's last visit to the Wound Center. No purulent drainage is associated with the wound. No erythema of the skin surrounding the wound is present. No maceration of the skin of the periwound is noted. GENITOURINARY: Only one superficial ulceration over the scrotum remains. No serous or purulent drai nage is associated with the wound. No scrotal erythema is appreciated. No maceration of the skin of the scrotum is noted. ASSESSMENT AND PLAN: 1. Sacral wound and scrotal lesion as described above. For the sacral wound, dressing changes of Me dihoney, 2 x 2's and bordered gauze will be continued every other day after cleansing and irrigation at [facility]. For the scrotal wound, synalar ointment 0.025% will be continued after bathing and up t o b.i.d. I will see Mr. Bobby again in four weeks. 2. Diabetes mellitus. The patient's Accu-Chek in clinic today is 114. The patient has been reminde d that for optimal wound healing, his blood glucoses should remain below 150. 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 4. Hypertension. 5. Benign prostatic hypertrophy. 6. Coronary artery disease. 7. Peripheral vascular disease. 8. Chronic obstructive pulmonary disease. 9. Congestive heart failure. 10. Obstructive sleep apnea. 11. Osteoarthritis.
[2018-01-18] MEDS ORDERED: Sodium Chloride 0.9% 15 ML NEB ONE (17:46)
== END 2018-01-18 13:07 | disposition home or self-care (01) ==
LOC: WCC 13:06
PROVIDERS: ATTEND Family Medicine
DX: E11.622 Type 2 diabetes mellitus with other skin ulcer (principal); L98.499 Non-pressure chronic ulcer of skin of other sites with unspecified severity; N50.89 Other specified disorders of the male genital organs; G83.9 Paralytic syndrome, unspecified; B91 Sequelae of poliomyelitis; N40.0 Benign prostatic hyperplasia without lower urinary tract symptoms; I25.10 Atherosclerotic heart disease of native coronary artery without angina pectoris; J44.9 Chronic obstructive pulmonary disease, unspecified; I11.0 Hypertensive heart disease with heart failure; I50.9 Heart failure, unspecified; G47.33 Obstructive sleep apnea (adult) (pediatric); M19.90 Unspecified osteoarthritis, unspecified site
CPT/HCPCS: A4218

== ENCOUNTER 2018-03-08 12:59 | Outpatient (CLI) | payer MEDICARE, OTHER ==
[~2018-03-08 12:59] MED LIST changes: -Acetaminophen/Codeine 30-300mg Tablet ONE; -Iopamidol-M 200 41% 20 ML VIAL ONE; +Sodium Chloride 0.9% 15 ML NEB ONE
--- NOTE | 2018-03-08 14:47 | PRG ---
DATE OF SERVICE: 03/08/2018 HISTORY: Mr. Al Bobby is a very pleasant 77-year-old gentleman accompanied by his who pres ents to the Wound Center for evaluation of a sacral ulceration which according to the patient's has been present since 02/2017. Prior to being seen in the Wound Center, the patient received dressi ng changes of Medihoney followed by calcium alginate. The patient was referred to the Wound Center b darling Contreras. PHYSICAL EXAMINATION: VITAL SIGNS: Temperature 97.4, pulse 63, respirations 20, blood pressure 105/54, Accu-Chek 83. BACK: A sacral wound is present which measures approximately 2.2 x 1.1 cm. Very little granulation tissue is present within the wound margins. No purulent drainage is associated with the wound. No e rythema of the skin surrounding the wound is present. No maceration of the skin of the periwound is noted. ASSESSMENT AND PLAN: 1. Sacral wound as described above. For the sacral wound, dressing changes of Medihoney will be dis continued. Dressing changes of Promogran will be initiated today. These dressing changes are to be performed on a daily basis after cleansing and irrigation at [facility]. Arrangements will also be mad e for plain films of the pelvis to look for findings suggestive of osteomyelitis. I will see Mr. Lois rodríguez again in four weeks. 2. Diabetes mellitus. The patient's Accu-Chek in clinic today is 83. The patient has been reminded that for optimal wound healing, his blood glucoses should remain below 150. 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 4. Hypertension. 5. Benign prostatic hypertrophy. 6. Coronary artery disease. 7. Peripheral vascular disease. 8. Chronic obstructive pulmonary disease. 9. Congestive heart failure. 10. Obstructive sleep apnea. 11. Osteoarthritis.
== END 2018-03-08 13:00 | disposition home or self-care (01) ==
LOC: WCC 12:59
PROVIDERS: ATTEND Family Medicine
DX: E11.622 Type 2 diabetes mellitus with other skin ulcer (principal); L98.429 Non-pressure chronic ulcer of back with unspecified severity; J44.9 Chronic obstructive pulmonary disease, unspecified; I11.0 Hypertensive heart disease with heart failure; I25.10 Atherosclerotic heart disease of native coronary artery without angina pectoris; I50.9 Heart failure, unspecified; G47.33 Obstructive sleep apnea (adult) (pediatric); M19.90 Unspecified osteoarthritis, unspecified site; N40.0 Benign prostatic hyperplasia without lower urinary tract symptoms; E11.51 Type 2 diabetes mellitus with diabetic peripheral angiopathy without gangrene; G83.9 Paralytic syndrome, unspecified
CPT/HCPCS: 97602; A4218

== ENCOUNTER 2018-05-05 14:19 | Outpatient (CLI) | payer MEDICARE, OTHER ==
--- NOTE | 2018-05-05 17:17 | PRG ---
DATE OF SERVICE: 05/05/2018 HISTORY: Mr. Al Bobby is a very pleasant 78-year-old gentleman, accompanied by his , who presents to the Wound Center for evaluation of a sacral ulceration, which according to the patient's has been present since February of 2017. Prior to being seen in the Wound Center, the patient received dressing changes of Medihoney, followed by calcium alginate. The patient was referred to the Wound Center by Dr. Sofy Contreras. The patient has also received a trial of dressing changes with Promogran. PHYSICAL EXAMINATION: VITAL SIGNS: Temperature 98.0, pulse 80, respirations 18, and blood pressure 108/55. BACK: A sacral wound is present, which measures approximately 2.1 x 1.0 cm. The dimensions of the wound at the time of the patient's visit on 03/08/2018 were approximately 2.2 x 1.1 cm. Granulation tissue was visible within the wound margins. No purulent drainage is associated with the wound. No erythema of the skin surrounding the wound is present. No maceration of the skin of the periwound is noted. After copious irrigation of the wound bed, Hyalomatrix was applied to the wound bed, silicone layer outwards, followed by Adaptic and Mepilex sacral. The Hyalomatrix was secured with the use of Steri-Strips and Mastisol. ASSESSMENT AND PLAN: 1. Sacral wound as described above. For the sacral wound, dressing changes of Adaptic and Mepilex sacral are to be performed as needed until the patient's followup visit in 2 weeks. Orders will be also transmitted to [facility] for the Hyalomatrix secured with Steri-Strips and Mastisol to be left intact at the time of dressing changes. At the time of the patient's visit in 2 weeks, consideration will be given to another application of Hyalomatrix. The results of the plain films of the pelvis obtained at [facility] will be reviewed. 2. Diabetes mellitus. Accu-Cheks will be obtained at the time of the patient's clinic visit. The patient has been remained that for optimal wound healing, his blood glucoses should remain below 150. 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 4. Hypertension. 5. Benign prostatic hypertrophy. 6. Coronary artery disease. 7. Peripheral vascular disease. 8. Chronic obstructive pulmonary disease. 9. Congestive heart failure. 10. Obstructive sleep apnea. 11. Osteoarthritis. Job ID: [id number]
[2018-05-05] MEDS ORDERED: Sodium Chloride 0.9% 15 ML NEB ONE (18:00)
== END 2018-05-05 14:20 | disposition home or self-care (01) ==
LOC: WCC 14:19
PROVIDERS: ATTEND Family Medicine
DX: E11.622 Type 2 diabetes mellitus with other skin ulcer (principal); L98.419 Non-pressure chronic ulcer of buttock with unspecified severity; I25.10 Atherosclerotic heart disease of native coronary artery without angina pectoris; J44.9 Chronic obstructive pulmonary disease, unspecified; N40.0 Benign prostatic hyperplasia without lower urinary tract symptoms; I11.0 Hypertensive heart disease with heart failure; I50.9 Heart failure, unspecified; G47.33 Obstructive sleep apnea (adult) (pediatric); M19.90 Unspecified osteoarthritis, unspecified site; G83.9 Paralytic syndrome, unspecified
CPT/HCPCS: A4218; Q4117

== ENCOUNTER 2018-05-19 14:03 | Outpatient (CLI) | payer MEDICARE ==
--- NOTE | 2018-05-19 16:13 | PRG ---
DATE OF SERVICE: 05/19/2018 HISTORY: Mr. Al Bobby is a very pleasant 78-year-old gentleman accompanied by his , who presents to the Wound Center for evaluation of a coccygeal ulceration, which the patient's previously stated, has been present since February of 2017. Prior to being seen in the Wound Center, the patient received dressing changes of Medihoney followed by calcium alginate. The patient was referred to the Wound Center by Dr. Sofy Contreras. The patient has also received a trial of dressing changes with Promogran. At the time of the patient's last visit, Hyalomatrix was applied to the wound bed of the ulceration. PHYSICAL EXAMINATION: VITAL SIGNS: Temperature 98.0, pulse 78, respirations 17, and blood pressure 122/57. BACK: A sacral wound is present which measures approximately 3.0 x 1.3 cm. The dimensions of the wound at the time of the patient's visit on 05/05/2018 were approximately 2.1 x 1.0 cm. Granulation tissue was visible within the wound margins. No purulent drainage is associated with the wound. No erythema of the skin surrounding the wound is present. No maceration of the skin of the aleisha-wound is noted. ASSESSMENT AND PLAN: 1. Sacral wound as described above. Arrangements will be made for MRI of the pelvis with and without contrast to look for findings suggestive of osteomyelitis. For the sacral wound, dressing changes of iodoform gauze and Mepilex sacral are to be performed on a daily basis after cleansing and irrigation until MRI of the pelvis is obtained. I will see Mr. Bobby again after he has undergone MRI of the pelvis. The patient and his understand and are in agreement with the preceding treatment plan. 2. Diabetes mellitus: Accu-Cheks will be obtained at the time of the patient's clinic visits. The patient has been reminded that for optimal wound healing. The patient's blood glucoses should remain below 150. 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 4. Hypertension. 5. Benign prostatic hypertrophy. 6. Coronary artery disease. 7. Peripheral vascular disease. 8. Chronic obstructive pulmonary disease. 9. Congestive heart failure. 10. Obstructive sleep apnea. 11. Osteoarthritis. Job ID: [id number]
== END 2018-05-19 14:04 | disposition home or self-care (01) ==
LOC: WCC 14:03
PROVIDERS: ATTEND Family Medicine
DX: L89.159 Pressure ulcer of sacral region, unspecified stage (principal); E11.9 Type 2 diabetes mellitus without complications; A80.30 Acute paralytic poliomyelitis, unspecified; N40.0 Benign prostatic hyperplasia without lower urinary tract symptoms; I25.10 Atherosclerotic heart disease of native coronary artery without angina pectoris; I73.9 Peripheral vascular disease, unspecified; J44.9 Chronic obstructive pulmonary disease, unspecified; I11.0 Hypertensive heart disease with heart failure; I50.9 Heart failure, unspecified; M19.90 Unspecified osteoarthritis, unspecified site; G47.33 Obstructive sleep apnea (adult) (pediatric)
CPT/HCPCS: 97602; A4218

== ENCOUNTER 2018-07-01 15:05 | Outpatient (CLI) | payer MEDICARE ==
[2018-07-01] MEDS ORDERED: Sodium Chloride 0.9% 15 ML NEB ONE ×2 (16:09→19:49)
--- NOTE | 2018-07-01 16:35 | PRG ---
DATE OF SERVICE: 07/01/2018 SUBJECTIVE: Mr. Al Bobby is a very pleasant 78-year-old gentleman, accompanied by his who presents to the Wound Center for evaluation of a coccygeal ulceration, which the patient's previously stated has been present since February of 2017. Prior to being seen in the Wound Center, the patient received dressing changes of Medihoney followed by calcium alginate. The patient was referred to the Wound Center by Dr. Sofy Contreras. The patient has also received a trial of dressing changes with Promogran. At the time of the patient's visit on 05/05/2018, Hyalomatrix was applied to the wound bed of the ulceration. PHYSICAL EXAMINATION: VITAL SIGNS: Temperature 98.4, pulse 77, respirations 16, blood pressure 93/54. BACK: A sacral wound is present, which measures approximately 3.0 x 2.0 cm. The dimensions of the wound at the time of the patient's visit on 05/19/2018 were approximately 3.0 x 1.3 cm. Granulation tissue is visible within the wound margins. No purulent drainage is associated with the wound. No erythema of the skin surrounding the wound is present. No maceration of the skin of the periwound is noted. ASSESSMENT AND PLAN: 1. Sacral wound as described above. CT scan of the pelvis showed no findings suggestive of osteomyelitis. For the sacral wound, dressing changes of Hydrofera Blue, followed by Mepilex sacral will be initiated today. These dressing changes are to be performed on a daily basis after cleansing and irrigation. Albumin and pre-albumin levels will be obtained today. Orders will also be transmitted to [facility] for the patient to be placed on a low air loss mattress or air fluidized bed. 2. Consideration will also be given to a trial of negative pressure therapy for the sacral wound. 3. Diabetes mellitus. Accu-Cheks will be obtained at the time of the patient's clinic visits. The patient has been reminded that for optimal wound healing, the patient's blood glucoses should remain below 150. 4. 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 5. Hypertension. 6. Benign prostatic hypertrophy. 7. Coronary artery disease. 8. Peripheral vascular disease. 9. Chronic obstructive pulmonary disease. 10. Congestive heart failure. 11. Obstructive sleep apnea. 12. Osteoarthritis. Job ID: [id number]
== END 2018-07-01 15:06 | disposition home or self-care (01) ==
LOC: WCC 15:05
PROVIDERS: ATTEND Family Medicine
DX: E11.622 Type 2 diabetes mellitus with other skin ulcer (principal); L98.499 Non-pressure chronic ulcer of skin of other sites with unspecified severity; I11.0 Hypertensive heart disease with heart failure; I50.9 Heart failure, unspecified; I25.10 Atherosclerotic heart disease of native coronary artery without angina pectoris; I73.9 Peripheral vascular disease, unspecified; J44.9 Chronic obstructive pulmonary disease, unspecified; N40.0 Benign prostatic hyperplasia without lower urinary tract symptoms; G83.9 Paralytic syndrome, unspecified; A80.9 Acute poliomyelitis, unspecified; G47.33 Obstructive sleep apnea (adult) (pediatric); M19.90 Unspecified osteoarthritis, unspecified site
CPT/HCPCS: 82040; 84134; 97602; A4218

== ENCOUNTER 2018-08-02 15:34 | Outpatient (CLI) | payer MEDICARE ==
--- NOTE | 2018-08-03 08:57 | PRG ---
DATE OF SERVICE: 08/02/2018 HISTORY: Mr. Al Bobby is a very pleasant 78-year-old gentleman, accompanied by his , who presents to the Wound Center for evaluation of a coccygeal ulceration, which the patient's previously stated has been present since February of 2017. Prior to being seen in the Wound Center, the patient received dressing changes of Medihoney followed by calcium alginate. The patient was referred to the Wound Center by Dr. Sofy Contreras. The patient has also received a trial of dressing changes with Promogran. At the time of the patient's visit on 05/05/2018, Hyalomatrix was applied to the wound bed of the ulceration. At the time of the patient's last visit to the Wound Center, dressing changes of Hydrofera Blue followed by Mepilex sacral were initiated. The dressing changes were to be performed on a daily basis after cleansing and irrigation. Since the patient's last visit to the Wound Center, Mr. Bobby is now residing in [facility]. He is also receiving a trial of negative pressure therapy for the coccygeal ulceration. PHYSICAL EXAMINATION: VITAL SIGNS: Temperature 97.8, pulse 76, respirations 21, and blood pressure 130/59. BACK: A sacral wound is present, which measures approximately 2.4 x 2.0 cm. The dimensions of the wound at the time of the patient's visit on 07/01/2018 were approximately 3.0 x 2.0 cm. Granulation tissue is visible within the wound margins. No purulent drainage is associated with the wound. No erythema of the skin surrounding the wound is present. No maceration of the skin of the periwound is noted. Bone, however, is palpable within the wound margins. LABORATORY DATA: Accu-Chek 127. ASSESSMENT AND PLAN: 1. Sacral wound as described above. CT scan of the pelvis performed recently showed no findings suggestive of osteomyelitis. However, as stated above, bone is now palpable within the wound margins. Plain films of the pelvis will be obtained. Arrangements will also be made for the patient to be seen in consultation by Dr. Олег Richardson of Infectious Diseases. For the sacral wound, negative pressure therapy will be continued with dressing changes of the wound VAC 3 times per week at [facility]. The patient's states that Mr. Bobby has been placed on a specialty mattress. Albumin and pre-albumin levels obtained on 07/01/2018 returned 4.0 and 23.0 respectively. The patient and his understand and are in agreement with the preceding treatment plan. 2. Diabetes mellitus. The patient's Accu-Chek in clinic today is 127. The patient has been reminded that for optimal wound healing, his blood glucoses should remain below 150. 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 4. Hypertension. 5. Benign prostatic hypertrophy. 6. Coronary artery disease. 7. Peripheral vascular disease. 8. Chronic obstructive pulmonary disease. 9. Congestive heart failure. 10. Obstructive sleep apnea. 11. Osteoarthritis. Job ID: [id number] MTDD
== END 2018-08-02 15:35 | disposition home or self-care (01) ==
LOC: WCC 15:34
PROVIDERS: ATTEND Family Medicine
DX: S31.000D Unspecified open wound of lower back and pelvis without penetration into retroperitoneum, subsequent encounter (principal); E11.9 Type 2 diabetes mellitus without complications; I10 Essential (primary) hypertension; N40.0 Benign prostatic hyperplasia without lower urinary tract symptoms; I73.9 Peripheral vascular disease, unspecified; I25.10 Atherosclerotic heart disease of native coronary artery without angina pectoris; J44.9 Chronic obstructive pulmonary disease, unspecified; I50.9 Heart failure, unspecified; G47.33 Obstructive sleep apnea (adult) (pediatric); M19.90 Unspecified osteoarthritis, unspecified site
CPT/HCPCS: A4218

== ENCOUNTER 2018-09-30 07:31 | Outpatient (CLI) | payer MEDICARE, MEDICAID ==
[2018-09-30] MEDS ORDERED: Iopamidol 370 76% 100 ML VIAL ONE (11:12)
--- NOTE | 2018-09-30 12:06 | CT ---
CT the pelvis with contrast INDICATION: History of chronic ulceration of the soft tissues of the pelvis that will not heal COMPARISON: CT of abdomen and pelvis dated March 17, 2009 FINDINGS: There is a full-thickness decubitus ulceration overlying the lower sacrum and coccyx. There is fragme ntation of the proximal coccygeal segments. There is prominent sclerosis of the proximal coccygeal segments consistent with chronic osteomyelitis. There is diffuse osteopenia. There are scattered dege nerative change. There is a prominent amount of retained stool within the colon. There are severe vascular calcifications of the abdominal pelvic vasculature. No drainable fluid collection is evident . No pathologically enlarged lymph node is demonstrated. There is a Barros catheter within a decompressed bladder. IMPRESSION: Stage IV decubitus ulceration overlying the coccyx with changes of chronic osteomyelitis with fragmentation involving the coccyx.
== END 2018-09-30 07:32 | disposition home or self-care (01) ==
LOC: CT 07:31 → RAD 07:31 → CT 07:32 → EDSTATUS 08:00
PROVIDERS: ATTEND Internal Medicine Infectious Disease
DX: L89.154 Pressure ulcer of sacral region, stage 4 (principal)
CPT/HCPCS: 72193; 82565; Q9967

== ENCOUNTER 2018-10-29 06:51 | Inpatient (IN) | payer MEDICARE, MEDICAID ==
[2018-10-29 08:00] LABS: #Basophils 0.1 thou/uL (0.0-0.2); #Eosinphils 0.2 thou/uL (0.0-0.7); #Lymphocytes 2.5 thou/uL (1.20-3.40); #Monocytes 1.4 thou/uL (0.11-0.59); #Neutrophils 9.6 thou/uL (1.40-6.50); %Basophils 0.5 % (0.0-1.0); %Eosinophils 1.4 % (0.0-10.0); %Monocytes 10.5 % (0.0-10.0); %Neutrophils 69.6 % (42.0-75.0); Hemoglobin 9.1 g/dL (14.0-18.0); Mean Corpuscular HGB CONC 32.8 g/dL (32.0-36.0); Mean Corpuscular Hemoglobin 28.7 pg (27.0-31.0); Mean Corpuscular Volume 87.2 fL (78.0-98.0); Platelet Count 355 thou/uL (130-400); RBC Distribution Width 13.4 % (11.5-14.5); Red Blood Cell (RBC) Count 3.19 mill/uL (4.70-6.10); White Blood Cell (WBC) Count 13.8 thou/uL (4.8-10.8)
[2018-10-29 08:12] LABS: Anion Gap 11 mmol/L (10-20); BUN (Urea Nitrogen) 54 mg/dL (8.4-25.7); Calc. Creatinine Clearance 0 mL/min (70-130); Calcium 9.7 mg/dL (7.8-10.44); Carbon Dioxide 29 mmol/L (23-31); Chloride 98 mmol/L (98-107); Estimated GFR-MDRD Greater than 90; Glucose 83 mg/dL (83-110); Potassium 4.4 mmol/L (3.5-5.1); Sodium 134 mmol/L (136-145)
[2018-10-29] MEDS ORDERED: Fentanyl 100 MCG/2 ML VIAL ONE ×3 (09:53→12:19)
[2018-10-29] MEDS ORDERED: Heparin 1,000 UNITS/ML VIAL ONE (10:00)
[2018-10-29] MEDS ORDERED: Phenylephrine HCL 10 MG/ML VIAL ONE (10:45)
[2018-10-29] MEDS ORDERED: Rocuronium Bromide 10 MG/ML (10ML VIAL) ONE (11:12)
[2018-10-29] MEDS ORDERED: Lidocaine 1% PF 5 ML VIAL ONE (11:12)
[2018-10-29] MEDS ORDERED: PROPOFOL 200 MG/20 ML VIAL ONE (11:12)
[2018-10-29] MEDS ORDERED: Ondansetron PF 4 MG/2 ML Vial ONE (11:12)
[2018-10-29] MEDS ORDERED: Glycopyrrolate 0.2 MG/ML 5 ML SYRINGE ONE (11:12)
[2018-10-29] MEDS ORDERED: Acetaminophen 325 MG TAB PO PRN (14:06)
[2018-10-29] MEDS: HYDROcodone/Acetaminophen 5/325 mg Tablet PO PRN (14:26)
--- NOTE | 2018-10-29 15:41 | SPC ---
Sonographic guided right upper extremity PICC placement HISTORY: Decubitus ulcer. Need for long-term antibiotics Cipro and answering all questions, the right upper extremity was prepped and draped in usual sterile fashion. Sterile technique, buffered local anesthesia, sonographic guidance, and a 22-gauge needle were used to carefully access the right basil ic vein. Significant difficulty was encountered due to flaccidity and mobility of the vein. Small amount of contrast was injected to confirm position. Standard technique was used to place the tip of a 5 [place] single lumen PICC at the cavoatrial juncti on. The catheter was secured externally and flushed. Patient tolerated the procedure well and was returned in unchanged condition. IMPRESSION: Technically successful right upper extremity PICC placement. Catheter is now ready for us e.
[2018-10-29 15:56] VITALS: BMI 21.9
[2018-10-29] MEDS ORDERED: Morphine 4 MG/ML VIAL SLOW IVP PRN (16:38)
[2018-10-29] MEDS ORDERED: Dextrose 50% Abboject 50 ML SYRINGE SLOW IVP PRN (16:41)
[2018-10-29] MEDS ORDERED: Dextrose 5% in Water 1,000 ML IV PRN (16:41)
[2018-10-29] MEDS ORDERED: HumaLOG 300 UNITS/3 ML VIAL SC PRN (16:41)
[2018-10-29] MEDS ORDERED: traMADol HCl 50 MG TAB PO PRN (17:17)
--- NOTE | 2018-10-29 17:23 | PDOC.PN ---
- Subjective Encounter Start Date: 10/29/18 Encounter Start Time: 11:30 Subjective: pt up in bed no complains - Objective Vital Signs & Weight: Weight Weight 162 lb Result Diagrams: 10/29/18 07:47 10/29/18 07:47 Phys Exam - Physical Examination Respiratory: no wheezing, no rales, no rhonchi, wheezing present, clear to auscultation bilateral Cardiovascular: RRR, no significant murmur, no rub, gallop, irregular Gastrointestinal: soft, non-tender, no distention, positive bowel sounds Musculoskeletal: no edema, pulses present, edema present Deviation from normal: left lateral foot, ulcer Dx/Plan (1) S/P debridement Code(s): Z98.890 - OTHER SPECIFIED POSTPROCEDURAL STATES Status: Acute (2) COPD (chronic obstructive pulmonary disease) Status: Chronic (3) Diabetes type 2, controlled Code(s): E11.9 - TYPE 2 DIABETES MELLITUS WITHOUT COMPLICATIONS Status: Chronic (4) Dyslipidemia Code(s): E78.5 - HYPERLIPIDEMIA, UNSPECIFIED Status: Chronic Comment: Statin (5) Osteomyelitis Code(s): M86.9 - OSTEOMYELITIS, UNSPECIFIED Status: Acute - Plan * . pt is a 78y/o senior care male who is bed bound due to polio. Pt has been battling with sacral ducubiitis since 2017. Per he has been to wound care but this wound over the years have progressively become worse. pt had a ct which indicated osteomyelitis and he was referred to ID. ID consulted surgery for debridement and also bone cx. I will hold off on abx pt is stable. will consult ID and wait for results. if pt's spikes a fever or has elevated wbc will start on abx. we were consulted for medical management. Review of Systems - Review of Systems Respiratory: negative: Cough, Dry, Shortness of Breath, Hemoptysis, SOB with Excertion, Pleuritic Pain, Sputum, Wheezing Cardiovascular: negative: chest pain, palpitations, orthopnea, paroxysmal nocturnal dyspnea, edema, light headedness, other Gastrointestinal: negative: Nausea, Vomiting, Abdominal Pain, Diarrhea, Constipation, Melena, Hematochezia, Other - Medications/Allergies Allergies/Adverse Reactions: Allergies Allergy/AdvReac Type Severity Reaction Status Date / Time aspirin Allergy Verified 10/28/18 10:45 cephalexin [From Keflex] Allergy Verified 10/28/18 10:45 Sulfa (Sulfonamide Allergy Verified 10/28/18 10:45 Antibiotics) morphine AdvReac Severe Verified 04/17/17 11:34 Medications: Current Medications Acetaminophen (Tylenol) 1,000 mg PO HS [facility] Hydrocodone Bitart/Acetaminophen ([place] 5/325) 1 tab PO Q4H PRN PRN Reason: Severe Pain (7-10) Last Admin: 10/29/18 14:26 Dose: 1 tab Carvedilol (Coreg) 6.25 mg PO BID [facility] Clopidogrel Bisulfate (Plavix) 75 mg PO DAILY [facility] Dextrose/Water (Dextrose 50%) 25 gm SLOW IVP PRN PRN PRN Reason: Hypoglycemia Docusate Sodium (Colace) 100 mg PO BID [facility] Fenofibrate (Tricor) 145 mg PO DAILY [facility] Glucagon (Glucagon) 1 mg IM PRN PRN PRN Reason: Hypoglycemia Dextrose/Water (D5w) 1,000 mls @ 0 mls/hr IV .Q0M PRN PRN Reason: Hypoglycemia Insulin Human Lispro (Humalog) 0 units [place] .MILD SLIDING SCALE PRN PRN Reason: Mild Correctional Scale Melatonin (Melatonin) 3 mg PO HS [facility] Metformin HCl (Glucophage) 1,000 mg PO BID-WM [facility] Oxycodone HCl (Oxycodone Ir) 10 mg PO Q4H PRN PRN Reason: Pain 4-6 Pentoxifylline (Trental) 400 mg PO BID [facility] Polyethylene Glycol (Miralax) 17 gm PO DAILY [facility] Rosuvastatin Calcium (Crestor) 5 mg PO HS [facility] Tramadol HCl (Ultram) 50 mg PO Q6H PRN PRN Reason: Moderate Pain (4-6) 2ND LINE
[2018-10-29] MEDS: metFORMIN 500 MG TAB PO SCH (17:26)
[2018-10-29] MEDS: oxyCODONE 5 MG TAB PO PRN (17:27)
[2018-10-29] MEDS: Carvedilol 6.25 MG TAB PO SCH (22:17)
[2018-10-29] MEDS: Docusate 100 MG CAP PO SCH (22:17)
[2018-10-29] MEDS: Melatonin 3 MG TAB PO SCH (22:17)
[2018-10-29] MEDS: Rosuvastatin 5 MG TAB PO SCH (22:18)
[2018-10-29] MEDS: Acetaminophen 500 MG TAB PO SCH (22:20)
[2018-10-30] MEDS: HYDROcodone/Acetaminophen 5/325 mg Tablet PO PRN ×2 (02:56→07:30)
[2018-10-30] MEDS: Clopidogrel Bisulfate 75 MG TAB PO SCH (09:00)
[2018-10-30] MEDS: Polyethylene Glycol 3350 17 GM Packet PO SCH (09:00)
[2018-10-30] MEDS: Docusate 100 MG CAP PO SCH ×2 (09:01→20:17)
[2018-10-30] MEDS: metFORMIN 500 MG TAB PO SCH ×2 (09:01→17:13)
[2018-10-30] MEDS: Carvedilol 6.25 MG TAB PO SCH ×2 (09:01→20:17)
[2018-10-30] MEDS: Fenofibrate Nanocrystallized 145 MG TAB PO SCH (09:02)
[2018-10-30] MEDS: oxyCODONE 5 MG TAB PO PRN ×3 (13:43→23:06)
[2018-10-30] MEDS: Melatonin 3 MG TAB PO SCH (20:17)
[2018-10-30] MEDS: Rosuvastatin 5 MG TAB PO SCH (20:17)
[2018-10-30] MEDS: Acetaminophen 500 MG TAB PO SCH (20:17)
--- NOTE | 2018-10-31 00:54 | CON ---
DATE OF CONSULTATION: 10/30/2018 REASON FOR CONSULTATION: Sacral decubitus, status post surgical debridement. HISTORY OF PRESENT ILLNESS: A 78-year-old gentleman whom I had seen in the clinic, who has a history of post-polio syndrome with lower extremity paralysis, type 2 diabetes, C-spine stenosis status post decompression and fusion, who has a chronic sacral decubitus ulcer which has been identified with osteomyelitis. The patient was referred to Dr. Garrison and now was admitted and had a surgical procedure done I believe yesterday. The patient has a negative pressure dressing in place now. Denies any headaches. No cough or respiratory symptoms. No abdominal pain and he is voiding with an indwelling catheter. PAST MEDICAL HISTORY: Type 2 diabetes, post-polio syndrome, BPH, coronary artery disease peripheral vascular disease, COPD, cardiomyopathy with AICD in place, C-spine stenosis status post decompression surgery with fusion, aortobifemoral bypass, carotid endarterectomy, laminectomy, pacemaker placement with defibrillator, transurethral resection of bladder lesion. ALLERGIES: MORPHINE. SOCIAL HISTORY: Three packs of cigarettes per day for over 50 years, quit 7 years ago. He used to drink socially, but now rarely consumes alcoholic beverages. FAMILY HISTORY: Type 2 diabetes. CURRENT MEDICATIONS: 1. Tylenol. 2. Oscoda. 3. Coreg. 4. Plavix. 5. Colace. 6. TriCor. 7. Flonase. 8. Glucagon. 9. Insulin. 10. Claritin. 11. Melatonin. 12. Glucophage. 13. Oxycodone. 14. Trental. 15. Maalox. 16. Crestor. 17. Ultram. PHYSICAL EXAMINATION: VITAL SIGNS: T-max 98.9, blood pressure 160/70, pulse 66, respirations 20, O2 saturation 97%. SKIN: Remarkable for the area of surgical debridement in the decubitus area with fresh red tissue with serosanguineous drainage. There is also a small little ulcer measuring less than 1 cm in the lateral aspect of the left hindfoot covered by dark scab. The patient has a PICC line in place in the right upper extremity. No lymphadenopathy. HEENT: Ocular movements conjugate. Oral cavity with still quite a few teeth with enamel discoloration. NECK: Supple. No jugular vein distention. LUNGS: Symmetric air entry. S1 and S2, regular rate. No S3 or S4. ABDOMEN: Soft, not distended. No bladder distention. EXTREMITIES: He has paraplegia. His upper extremity movements are intact. His cognitive function appears to be intact. DIAGNOSTIC DATA: Pelvic CT with stage 4 decubitus with changes of chronic osteomyelitis and fragmentation involving the coccyx. The surgical report is pending. Microbiology data is pending as well. Previous microbiology data are restricted to urine cultures. LABORATORY RESULTS: White cell count 13.8, hemoglobin 9.1, platelets 355. Sodium 134, creatinine 0.75. The Gram stain from the sacral bone sample with no organisms seen. No growth at 12 hours. ASSESSMENT: Post-polio syndrome, peripheral vascular disease, C-spine stenosis with chronic sacrococcygeal ulcer with osteomyelitis. DISCUSSION: Now, we will have proper sample for cultures and we will wait for the final results of the microbiology workup to define the regimen for discharge planning. The patient is supposed to go back to the longterm. He already has a PICC line and we will plan protracted treatment with IV antimicrobial therapy. Sometimes, bone remodeling can mimic the findings of osteomyelitis, but in his case, there are obvious exposure and destruction of the distal end of the sacrococcygeal area. [place] importance will be the proper offloading to prevent recrudescence of the problem in the remainder aspect of his sacrum. Job ID: [id number]
[2018-10-31] MEDS: oxyCODONE 5 MG TAB PO PRN ×5 (03:14→21:08)
[2018-10-31 03:44] LABS: #Basophils 0.1 thou/uL (0.0-0.2); #Eosinphils 0.2 thou/uL (0.0-0.7); #Monocytes 1.2 thou/uL (0.11-0.59); #Neutrophils 5.1 thou/uL (1.40-6.50); %Eosinophils 2.5 % (0.0-10.0); %Lymphocytes 31.4 % (21.0-51.0); %Neutrophils 53.1 % (42.0-75.0); Hemoglobin 8.4 g/dL (14.0-18.0); Mean Corpuscular HGB CONC 32.4 g/dL (32.0-36.0); Mean Corpuscular Hemoglobin 28.4 pg (27.0-31.0); Mean Corpuscular Volume 87.4 fL (78.0-98.0); Mean Platelet Volume 6.9 fL (7.4-10.4); Platelet Count 327 thou/uL (130-400); RBC Distribution Width 13.3 % (11.5-14.5); Red Blood Cell (RBC) Count 2.95 mill/uL (4.70-6.10); White Blood Cell (WBC) Count 9.5 thou/uL (4.8-10.8)
[2018-10-31 04:03] LABS: Anion Gap 10 mmol/L (10-20); BUN (Urea Nitrogen) 34 mg/dL (8.4-25.7); Calc. Creatinine Clearance 105 mL/min (70-130); Calcium 9.5 mg/dL (7.8-10.44); Carbon Dioxide 28 mmol/L (23-31); Chloride 102 mmol/L (98-107); Estimated GFR-MDRD Greater than 90; Glucose 97 mg/dL (83-110); Sodium 136 mmol/L (136-145)
--- NOTE | 2018-10-31 07:50 | PDOC.PN ---
- Subjective Encounter Start Date: 10/30/18 Encounter Start Time: 13:00 Subjective: pt up in bed no complains - Objective Vital Signs & Weight: Vital Signs (12 hours) Temp Pulse Resp BP BP Pulse Ox 10/31/18 03:35 97.9 F 60 16 103/63 97 10/30/18 23:33 98.2 F 74 16 165/75 H 97 10/30/18 20:17 137/78 10/30/18 20:00 98.5 F 76 16 137/78 98 Weight Admit Weight 162 lb Weight 162 lb I&O: 10/30/18 10/31/18 11/01/18 06:59 06:59 06:59 Intake Total 1430 Output Total 4950 Balance -3520 Result Diagrams: 10/31/18 03:27 10/31/18 03:27 Additional Labs: Accuchecks 10/31/18 10/30/18 10/30/18 05:46 21:02 16:39 POC Glucose 103 116 H 97 10/30/18 11:01 POC Glucose 179 H Phys Exam - Physical Examination Respiratory: no wheezing, no rales, no rhonchi, wheezing present, clear to auscultation bilateral Cardiovascular: RRR, no significant murmur, no rub, gallop, irregular Gastrointestinal: soft, non-tender, no distention, positive bowel sounds Musculoskeletal: no edema, pulses present, edema present Dx/Plan (1) S/P debridement Code(s): Z98.890 - OTHER SPECIFIED POSTPROCEDURAL STATES Status: Acute (2) COPD (chronic obstructive pulmonary disease) Status: Chronic (3) Diabetes type 2, controlled Code(s): E11.9 - TYPE 2 DIABETES MELLITUS WITHOUT COMPLICATIONS Status: Chronic (4) Dyslipidemia Code(s): E78.5 - HYPERLIPIDEMIA, UNSPECIFIED Status: Chronic Comment: Statin (5) Osteomyelitis Code(s): M86.9 - OSTEOMYELITIS, UNSPECIFIED Status: Acute (6) Chronic indwelling Barros catheter Code(s): Z96.0 - PRESENCE OF UROGENITAL IMPLANTS Status: Acute - Plan will hold off until cx come back to start abx -: ID consulted -: waiting on special bed since pt is bed bound. will add additional stool -: softners -: pt does have a suprabpubic cath that needs to be exchanged * . Review of Systems - Review of Systems Cardiovascular: negative: chest pain, palpitations, orthopnea, paroxysmal nocturnal dyspnea, edema, light headedness, other Gastrointestinal: negative: Nausea, Vomiting, Abdominal Pain, Diarrhea, Constipation, Melena, Hematochezia, Other Genitourinary: negative: Dysuria, Frequency, Incontinence, Hematuria, Retention , Other - Medications/Allergies Allergies/Adverse Reactions: Allergies Allergy/AdvReac Type Severity Reaction Status Date / Time aspirin Allergy Verified 10/28/18 10:45 cephalexin [From Keflex] Allergy Verified 10/28/18 10:45 Sulfa (Sulfonamide Allergy Verified 10/28/18 10:45 Antibiotics) morphine AdvReac Severe Verified 04/17/17 11:34 Medications: Current Medications Acetaminophen (Tylenol) 1,000 mg PO HS [facility] Last Admin: 10/30/18 20:17 Dose: 1,000 mg Hydrocodone Bitart/Acetaminophen ([place] 5/325) 1 tab PO Q4H PRN PRN Reason: Severe Pain (7-10) Last Admin: 10/30/18 07:30 Dose: 1 tab Carvedilol (Coreg) 6.25 mg PO BID [facility] Last Admin: 10/30/18 20:17 Dose: 6.25 mg Clopidogrel Bisulfate (Plavix) 75 mg PO DAILY [facility] Last Admin: 10/30/18 09:00 Dose: 75 mg Dextrose/Water (Dextrose 50%) 25 gm SLOW IVP PRN PRN PRN Reason: Hypoglycemia Docusate Sodium (Colace) 100 mg PO BID [facility] Last Admin: 10/30/18 20:17 Dose: 100 mg Fenofibrate (Tricor) 145 mg PO DAILY [facility] Last Admin: 10/30/18 09:02 Dose: 145 mg Fluticasone Propionate (Flonase Nasal [place]) 0 gm NASAL DAILY [facility] Glucagon (Glucagon) 1 mg IM PRN PRN PRN Reason: Hypoglycemia Dextrose/Water (D5w) 1,000 mls @ 0 mls/hr IV .Q0M PRN PRN Reason: Hypoglycemia Insulin Human Lispro (Humalog) 0 units [place] .MILD SLIDING SCALE PRN PRN Reason: Mild Correctional Scale Last Admin: 10/30/18 11:24 Dose: 2 unit Loratadine (Claritin) 10 mg PO DAILY [facility] Melatonin (Melatonin) 3 mg PO HS [facility] Last Admin: 10/30/18 20:17 Dose: 3 mg Metformin HCl (Glucophage) 1,000 mg PO BID-WM [facility] Last Admin: 10/30/18 17:13 Dose: 1,000 mg Oxycodone HCl (Oxycodone Ir) 10 mg PO Q4H PRN PRN Reason: Pain 4-6 Last Admin: 10/31/18 03:14 Dose: 10 mg Pentoxifylline (Trental) 400 mg PO BID [facility] Last Admin: 10/30/18 20:18 Dose: 400 mg Polyethylene Glycol (Miralax) 17 gm PO DAILY [facility] Last Admin: 10/30/18 09:00 Dose: 17 gm Rosuvastatin Calcium (Crestor) 5 mg PO HS [facility] Last Admin: 10/30/18 20:17 Dose: 5 mg Tramadol HCl (Ultram) 50 mg PO Q6H PRN PRN Reason: Moderate Pain (4-6) 2ND LINE
[2018-10-31] MEDS: Carvedilol 6.25 MG TAB PO SCH ×2 (08:30→21:09)
[2018-10-31] MEDS: Clopidogrel Bisulfate 75 MG TAB PO SCH (08:30)
[2018-10-31] MEDS: Polyethylene Glycol 3350 17 GM Packet PO SCH (08:30)
[2018-10-31] MEDS: metFORMIN 500 MG TAB PO SCH ×2 (08:30→16:31)
[2018-10-31] MEDS: Docusate 100 MG CAP PO SCH ×2 (08:30→21:08)
[2018-10-31] MEDS: Loratadine 10 MG TAB PO SCH (08:31)
[2018-10-31] MEDS: Fenofibrate Nanocrystallized 145 MG TAB PO SCH (08:31)
[2018-10-31] MEDS: Fluticasone Propionate Nasal Spray 16 gm Bottle NASAL SCH (11:40)
[2018-10-31] MEDS: Melatonin 3 MG TAB PO SCH (21:07)
[2018-10-31] MEDS: Acetaminophen 500 MG TAB PO SCH (21:08)
[2018-10-31] MEDS: Rosuvastatin 5 MG TAB PO SCH (21:08)
[2018-11-01] MEDS: oxyCODONE 5 MG TAB PO PRN ×5 (04:03→20:41)
[2018-11-01] MEDS: Docusate 100 MG CAP PO SCH ×2 (09:12→20:41)
[2018-11-01] MEDS: Polyethylene Glycol 3350 17 GM Packet PO SCH (09:12)
[2018-11-01] MEDS: Fenofibrate Nanocrystallized 145 MG TAB PO SCH (09:13)
[2018-11-01] MEDS: metFORMIN 500 MG TAB PO SCH ×2 (09:13→16:35)
[2018-11-01] MEDS: Loratadine 10 MG TAB PO SCH (09:13)
[2018-11-01] MEDS: Fluticasone Propionate Nasal Spray 16 gm Bottle NASAL SCH (09:13)
[2018-11-01] MEDS: Carvedilol 6.25 MG TAB PO SCH ×2 (09:13→20:41)
[2018-11-01] MEDS: Clopidogrel Bisulfate 75 MG TAB PO SCH (09:13)
[2018-11-01] MEDS ORDERED: Bisacodyl 10 MG SUPP PR PRN (12:25)
[2018-11-01] MEDS ORDERED: Bisacodyl 5 MG TAB PO PRN (12:25)
--- NOTE | 2018-11-01 13:41 | PDOC.PN ---
- Subjective Encounter Start Date: 10/31/18 Encounter Start Time: 10:15 Subjective: pt up in bed no complains - Objective Vital Signs & Weight: Vital Signs (12 hours) Temp Pulse Resp BP BP Pulse Ox 11/01/18 11:10 98.5 F 80 16 130/69 100 11/01/18 09:13 156/75 H 11/01/18 08:45 100 11/01/18 07:52 98.2 F 66 16 156/75 H 100 11/01/18 04:00 98.2 F 61 16 116/68 97 Weight Admit Weight 162 lb Weight 162 lb I&O: 10/31/18 11/01/18 11/02/18 06:59 06:59 06:59 Intake Total 1430 1050 Output Total 4950 1375 Balance -3520 -325 Result Diagrams: 10/31/18 03:27 10/31/18 03:27 Additional Labs: Accuchecks 11/01/18 11/01/18 10/31/18 11:18 05:50 21:02 POC Glucose 123 H 100 100 10/31/18 15:35 POC Glucose 126 H Phys Exam - Physical Examination Respiratory: no wheezing, no rales, no rhonchi, wheezing present, clear to auscultation bilateral Cardiovascular: RRR, no significant murmur, no rub, gallop, irregular Gastrointestinal: soft, non-tender, no distention, positive bowel sounds Musculoskeletal: no edema, pulses present, edema present Dx/Plan (1) S/P debridement Code(s): Z98.890 - OTHER SPECIFIED POSTPROCEDURAL STATES Status: Acute (2) COPD (chronic obstructive pulmonary disease) Status: Chronic (3) Diabetes type 2, controlled Code(s): E11.9 - TYPE 2 DIABETES MELLITUS WITHOUT COMPLICATIONS Status: Chronic (4) Dyslipidemia Code(s): E78.5 - HYPERLIPIDEMIA, UNSPECIFIED Status: Chronic Comment: Statin (5) Osteomyelitis Code(s): M86.9 - OSTEOMYELITIS, UNSPECIFIED Status: Acute (6) Chronic indwelling Barros catheter Code(s): Z96.0 - PRESENCE OF UROGENITAL IMPLANTS Status: Acute - Plan cx still negative -: will add stool softners -: pt eating well * . Review of Systems - Review of Systems Cardiovascular: negative: chest pain, palpitations, orthopnea, paroxysmal nocturnal dyspnea, edema, light headedness, other Gastrointestinal: negative: Nausea, Vomiting, Abdominal Pain, Diarrhea, Constipation, Melena, Hematochezia, Other Genitourinary: negative: Dysuria, Frequency, Incontinence, Hematuria, Retention , Other - Medications/Allergies Allergies/Adverse Reactions: Allergies Allergy/AdvReac Type Severity Reaction Status Date / Time aspirin Allergy Verified 10/28/18 10:45 cephalexin [From Keflex] Allergy Verified 10/28/18 10:45 Sulfa (Sulfonamide Allergy Verified 10/28/18 10:45 Antibiotics) morphine AdvReac Severe Verified 04/17/17 11:34 Medications: Current Medications Acetaminophen (Tylenol) 1,000 mg PO [facility] Last Admin: 10/31/18 21:08 Dose: 1,000 mg Hydrocodone Bitart/Acetaminophen ([place] 5/325) 1 tab PO Q4H PRN PRN Reason: Severe Pain (7-10) Last Admin: 10/30/18 07:30 Dose: 1 tab Bisacodyl (Dulcolax) 10 mg [place] DAILYPRN PRN PRN Reason: Constipation Bisacodyl (Dulcolax) 10 mg PO DAILYPRN PRN PRN Reason: Constipation Last Admin: 11/01/18 13:40 Dose: 10 mg Carvedilol (Coreg) 6.25 mg PO BID [facility] Last Admin: 11/01/18 09:13 Dose: 6.25 mg Clopidogrel Bisulfate (Plavix) 75 mg PO DAILY [facility] Last Admin: 11/01/18 09:13 Dose: 75 mg Dextrose/Water (Dextrose 50%) 25 gm SLOW IVP PRN PRN PRN Reason: Hypoglycemia Docusate Sodium (Colace) 100 mg PO BID [facility] Last Admin: 11/01/18 09:12 Dose: 100 mg Fenofibrate (Tricor) 145 mg PO DAILY [facility] Last Admin: 11/01/18 09:13 Dose: 145 mg Fluticasone Propionate (Flonase Nasal [place]) 0 gm NASAL DAILY [facility] Last Admin: 11/01/18 09:13 Dose: 1 spr Glucagon (Glucagon) 1 mg IM PRN PRN PRN Reason: Hypoglycemia Dextrose/Water (D5w) 1,000 mls @ 0 mls/hr IV .Q0M PRN PRN Reason: Hypoglycemia Insulin Human Lispro (Humalog) 0 units [place] .MILD SLIDING SCALE PRN PRN Reason: Mild Correctional Scale Last Admin: 10/30/18 11:24 Dose: 2 unit Loratadine (Claritin) 10 mg PO DAILY [facility] Last Admin: 11/01/18 09:13 Dose: 10 mg Melatonin (Melatonin) 3 mg PO HS [facility] Last Admin: 10/31/18 21:07 Dose: 3 mg Metformin HCl (Glucophage) 1,000 mg PO BID[facility] Last Admin: 11/01/18 09:13 Dose: 1,000 mg Oxycodone HCl (Oxycodone Ir) 10 mg PO Q4H PRN PRN Reason: Pain 4-6 Last Admin: 11/01/18 13:40 Dose: 10 mg Pentoxifylline (Trental) 400 mg PO BID [facility] Last Admin: 11/01/18 09:13 Dose: 400 mg Polyethylene Glycol (Miralax) 17 gm PO DAILY [facility] Last Admin: 11/01/18 09:12 Dose: 17 gm Rosuvastatin Calcium (Crestor) 5 mg PO [facility] Last Admin: 10/31/18 21:08 Dose: 5 mg Tramadol HCl (Ultram) 50 mg PO Q6H PRN PRN Reason: Moderate Pain (4-6) 2ND LINE
[2018-11-01] MEDS ORDERED: Meropenem 1 GM in Sodium Chloride 0.9% 100 ML IVPB SCH (14:00)
--- NOTE | 2018-11-01 14:55 | PDOC.PN ---
- Subjective Encounter Start Date: 11/01/18 Encounter Start Time: 10:15 Subjective: pt up in bed no complains - Objective Vital Signs & Weight: Vital Signs (12 hours) Temp Pulse Resp BP BP Pulse Ox 11/01/18 11:10 98.5 F 80 16 130/69 100 11/01/18 09:13 156/75 H 11/01/18 08:45 100 11/01/18 07:52 98.2 F 66 16 156/75 H 100 11/01/18 04:00 98.2 F 61 16 116/68 97 Weight Admit Weight 162 lb Weight 162 lb I&O: 10/31/18 11/01/18 11/02/18 06:59 06:59 06:59 Intake Total 1430 1050 Output Total 4950 1375 Balance -3520 -325 Result Diagrams: 10/31/18 03:27 10/31/18 03:27 Additional Labs: Accuchecks 11/01/18 11/01/18 10/31/18 11:18 05:50 21:02 POC Glucose 123 H 100 100 10/31/18 15:35 POC Glucose 126 H Phys Exam - Physical Examination Respiratory: no wheezing, no rales, no rhonchi, wheezing present, clear to auscultation bilateral Cardiovascular: RRR, no significant murmur, no rub, gallop, irregular Gastrointestinal: soft, non-tender, no distention, positive bowel sounds Dx/Plan (1) S/P debridement Code(s): Z98.890 - OTHER SPECIFIED POSTPROCEDURAL STATES Status: Acute (2) COPD (chronic obstructive pulmonary disease) Status: Chronic (3) Diabetes type 2, controlled Code(s): E11.9 - TYPE 2 DIABETES MELLITUS WITHOUT COMPLICATIONS Status: Chronic (4) Dyslipidemia Code(s): E78.5 - HYPERLIPIDEMIA, UNSPECIFIED Status: Chronic Comment: Statin (5) Osteomyelitis Code(s): M86.9 - OSTEOMYELITIS, UNSPECIFIED Status: Acute (6) Chronic indwelling Barros catheter Code(s): Z96.0 - PRESENCE OF UROGENITAL IMPLANTS Status: Acute - Plan cx negative, awaiting final cx. -: will ask ID if ok to discharge pt back to [place] while awaiting results -: will add additional stool softners * . Review of Systems - Review of Systems Respiratory: negative: Cough, Dry, Shortness of Breath, Hemoptysis, SOB with Excertion, Pleuritic Pain, Sputum, Wheezing Cardiovascular: negative: chest pain, palpitations, orthopnea, paroxysmal nocturnal dyspnea, edema, light headedness, other Gastrointestinal: negative: Nausea, Vomiting, Abdominal Pain, Diarrhea, Constipation, Melena, Hematochezia, Other - Medications/Allergies Allergies/Adverse Reactions: Allergies Allergy/AdvReac Type Severity Reaction Status Date / Time aspirin Allergy Verified 10/28/18 10:45 cephalexin [From Keflex] Allergy Verified 10/28/18 10:45 Sulfa (Sulfonamide Allergy Verified 10/28/18 10:45 Antibiotics) morphine AdvReac Severe Verified 04/17/17 11:34 Medications: Current Medications Acetaminophen (Tylenol) 1,000 mg PO [facility] Last Admin: 10/31/18 21:08 Dose: 1,000 mg Hydrocodone Bitart/Acetaminophen ([place] 5/325) 1 tab PO Q4H PRN PRN Reason: Severe Pain (7-10) Last Admin: 10/30/18 07:30 Dose: 1 tab Bisacodyl (Dulcolax) 10 mg [place] DAILYPRN PRN PRN Reason: Constipation Bisacodyl (Dulcolax) 10 mg PO DAILYPRN PRN PRN Reason: Constipation Last Admin: 11/01/18 13:40 Dose: 10 mg Carvedilol (Coreg) 6.25 mg PO BID [facility] Last Admin: 11/01/18 09:13 Dose: 6.25 mg Clopidogrel Bisulfate (Plavix) 75 mg PO DAILY [facility] Last Admin: 11/01/18 09:13 Dose: 75 mg Dextrose/Water (Dextrose 50%) 25 gm SLOW IVP PRN PRN PRN Reason: Hypoglycemia Docusate Sodium (Colace) 100 mg PO BID [facility] Last Admin: 11/01/18 09:12 Dose: 100 mg Fenofibrate (Tricor) 145 mg PO DAILY [facility] Last Admin: 11/01/18 09:13 Dose: 145 mg Fluticasone Propionate (Flonase Nasal [place]) 0 gm NASAL DAILY [facility] Last Admin: 11/01/18 09:13 Dose: 1 spr Glucagon (Glucagon) 1 mg IM PRN PRN PRN Reason: Hypoglycemia Dextrose/Water (D5w) 1,000 mls @ 0 mls/hr IV .Q0M PRN PRN Reason: Hypoglycemia Vancomycin HCl 1 gm/ Device 200 mls @ 200 mls/hr IVPB 0300,1500 [facility] Meropenem 1 gm/ Device 50 mls @ 100 mls/hr IVPB 0000,0800,1600 [facility] Insulin Human Lispro (Humalog) 0 units [place] .MILD SLIDING SCALE PRN PRN Reason: Mild Correctional Scale Last Admin: 10/30/18 11:24 Dose: 2 unit Loratadine (Claritin) 10 mg PO DAILY [facility] Last Admin: 11/01/18 09:13 Dose: 10 mg Melatonin (Melatonin) 3 mg PO HS [facility] Last Admin: 10/31/18 21:07 Dose: 3 mg Metformin HCl (Glucophage) 1,000 mg PO BID[facility] Last Admin: 11/01/18 09:13 Dose: 1,000 mg Oxycodone HCl (Oxycodone Ir) 10 mg PO Q4H PRN PRN Reason: Pain 4-6 Last Admin: 11/01/18 13:40 Dose: 10 mg Pentoxifylline (Trental) 400 mg PO BID [facility] Last Admin: 11/01/18 09:13 Dose: 400 mg Polyethylene Glycol (Miralax) 17 gm PO DAILY [facility] Last Admin: 11/01/18 09:12 Dose: 17 gm Rosuvastatin Calcium (Crestor) 5 mg PO HS [facility] Last Admin: 10/31/18 21:08 Dose: 5 mg Tramadol HCl (Ultram) 50 mg PO Q6H PRN PRN Reason: Moderate Pain (4-6) 2ND LINE
[2018-11-01] MEDS ORDERED: Vancomycin HCl 1 GM in Sodium Chloride 0.9% 250 ML 250 ML IVPB SCH (15:00)
[2018-11-01] MEDS: Vancomycin HCl 1 GM in Premix Bag 1 BAG IVPB SCH (16:04)
[2018-11-01] MEDS: MEROPENEM 1 GM/50 ML 1 GM in Premix Bag 1 BAG IVPB SCH (17:40)
[2018-11-01] MEDS: Acetaminophen 500 MG TAB PO SCH (20:40)
[2018-11-01] MEDS: Melatonin 3 MG TAB PO SCH (20:41)
[2018-11-01] MEDS: Rosuvastatin 5 MG TAB PO SCH (20:41)
[2018-11-02] MEDS: MEROPENEM 1 GM/50 ML 1 GM in Premix Bag 1 BAG IVPB SCH ×3 (00:17→18:26)
[2018-11-02] MEDS: Vancomycin HCl 1 GM in Premix Bag 1 BAG IVPB SCH ×2 (04:03→17:10)
[2018-11-02] MEDS: oxyCODONE 5 MG TAB PO PRN ×3 (04:05→19:24)
--- NOTE | 2018-11-02 09:05 | PDOC.PN ---
- Subjective Encounter Start Date: 11/02/18 Encounter Start Time: 10:45 Subjective: Patient reports pain in sacral area. No fever. No other complaints. Has -: PICC line in. - Objective MAR Reviewed: Yes Vital Signs & Weight: Vital Signs (12 hours) Temp Pulse Resp BP Pulse Ox 11/02/18 07:25 97.9 F 71 12 128/63 97 11/02/18 04:00 98 F 72 16 130/66 97 11/01/18 23:55 98.1 F 70 16 136/65 97 Weight Admit Weight 162 lb Weight 162 lb I&O: 11/01/18 11/02/18 11/03/18 06:59 06:59 06:59 Intake Total 1050 2000 Output Total 1375 2400 Balance -325 -400 Result Diagrams: 10/31/18 03:27 10/31/18 03:27 Additional Labs: Accuchecks 11/02/18 11/01/18 11/01/18 05:33 20:03 15:25 POC Glucose 108 152 H 128 H 11/01/18 11:18 POC Glucose 123 H Phys Exam - Physical Examination Constitutional: NAD HEENT: moist MMs Respiratory: no wheezing, no rales, no rhonchi Cardiovascular: RRR, no significant murmur Gastrointestinal: soft, positive bowel sounds Psychiatric: normal affect, A&O x 3 Dx/Plan (1) Osteomyelitis Code(s): M86.9 - OSTEOMYELITIS, UNSPECIFIED Status: Acute Qualifiers: Osteomyelitis location: other site Comment: sacrococcygeal decubitus with osteomyelitis s/p debridement and culture , growing back staph, on Meropenem 1g q8 and Vanc 1g q12 until December 12, weekly CBC, CMP, CRP and twice weekly Vanc trough (2) Chronic indwelling Barros catheter Code(s): Z96.0 - PRESENCE OF UROGENITAL IMPLANTS Status: Acute (3) COPD (chronic obstructive pulmonary disease) Status: Chronic (4) Diabetes type 2, controlled Code(s): E11.9 - TYPE 2 DIABETES MELLITUS WITHOUT COMPLICATIONS Status: Chronic (5) Dyslipidemia Code(s): E78.5 - HYPERLIPIDEMIA, UNSPECIFIED Status: Chronic Comment: Statin - Plan cont current plan of care, continue antibiotics, PT/OT Plan on discharge back to [facility] with IV antibiotics when determined -: by surgery and ID. Clear for discharge from our standpoint. * . - Discharge Day Encounter end time: 11:00
[2018-11-02] MEDS: Polyethylene Glycol 3350 17 GM Packet PO SCH (10:05)
[2018-11-02] MEDS: Fenofibrate Nanocrystallized 145 MG TAB PO SCH (10:06)
[2018-11-02] MEDS: Loratadine 10 MG TAB PO SCH (10:07)
[2018-11-02] MEDS: Docusate 100 MG CAP PO SCH ×2 (10:07→21:06)
[2018-11-02] MEDS: Carvedilol 6.25 MG TAB PO SCH ×2 (10:07→21:06)
[2018-11-02] MEDS: metFORMIN 500 MG TAB PO SCH ×2 (10:07→17:19)
[2018-11-02] MEDS: Clopidogrel Bisulfate 75 MG TAB PO SCH (10:07)
[2018-11-02] MEDS: Fluticasone Propionate Nasal Spray 16 gm Bottle NASAL SCH (10:11)
[2018-11-02] MEDS: HYDROcodone/Acetaminophen 5/325 mg Tablet PO PRN (13:10)
[2018-11-02] MEDS: Acetaminophen 500 MG TAB PO SCH (21:05)
[2018-11-02] MEDS: Rosuvastatin 5 MG TAB PO SCH (21:06)
[2018-11-02] MEDS: Melatonin 3 MG TAB PO SCH (21:06)
[2018-11-03] MEDS: MEROPENEM 1 GM/50 ML 1 GM in Premix Bag 1 BAG IVPB SCH ×3 (02:02→17:09)
[2018-11-03] MEDS: Vancomycin HCl 1 GM in Premix Bag 1 BAG IVPB SCH ×2 (03:57→15:17)
[2018-11-03] MEDS: oxyCODONE 5 MG TAB PO PRN ×2 (06:24→15:25)
--- NOTE | 2018-11-03 08:59 | PDOC.PN ---
- Subjective Encounter Start Date: 11/03/18 Encounter Start Time: 13:30 Subjective: Patient with only some persistent sacral pain. No fever. No other -: complaints. - Objective MAR Reviewed: Yes Vital Signs & Weight: Vital Signs (12 hours) Temp Pulse Resp BP BP Pulse Ox 11/03/18 07:35 97.8 F 72 12 136/70 99 11/03/18 04:23 98 F 67 15 137/65 98 11/03/18 00:41 98.7 F 79 15 111/58 L 97 11/02/18 21:06 176/61 H Weight Admit Weight 162 lb Weight 162 lb I&O: 11/02/18 11/03/18 11/04/18 06:59 06:59 06:59 Intake Total 1999 1739 Output Total 2400 2125 Balance -400 -385 Result Diagrams: 10/31/18 03:27 10/31/18 03:27 Additional Labs: Accuchecks 11/03/18 11/02/18 11/02/18 05:49 20:37 15:32 POC Glucose 105 111 H 115 H 11/02/18 11:22 POC Glucose 134 H Phys Exam - Physical Examination Constitutional: NAD HEENT: moist MMs Respiratory: no wheezing, no rales, no rhonchi Cardiovascular: RRR, no significant murmur Gastrointestinal: soft, positive bowel sounds Psychiatric: normal affect, A&O x 3 Dx/Plan (1) Osteomyelitis Code(s): M86.9 - OSTEOMYELITIS, UNSPECIFIED Status: Acute Qualifiers: Osteomyelitis location: other site Comment: sacrococcygeal decubitus with osteomyelitis s/p debridement and culture , growing back staph, on Meropenem 1g q8 and Vanc 1g q12 until December 12, weekly CBC, CMP, CRP and twice weekly Vanc trough (2) Chronic indwelling Barros catheter Code(s): Z96.0 - PRESENCE OF UROGENITAL IMPLANTS Status: Acute (3) COPD (chronic obstructive pulmonary disease) Status: Chronic (4) Diabetes type 2, controlled Code(s): E11.9 - TYPE 2 DIABETES MELLITUS WITHOUT COMPLICATIONS Status: Chronic (5) Dyslipidemia Code(s): E78.5 - HYPERLIPIDEMIA, UNSPECIFIED Status: Chronic Comment: Statin - Plan cont current plan of care, continue antibiotics Clear for discharge by Dr. Richardson. Will discharge to SNF. Wound vac. * . - Discharge Day Encounter end time: 13:55
[2018-11-03] MEDS: Docusate 100 MG CAP PO SCH ×2 (09:05→21:33)
[2018-11-03] MEDS: Carvedilol 6.25 MG TAB PO SCH ×2 (09:06→21:33)
[2018-11-03] MEDS: Clopidogrel Bisulfate 75 MG TAB PO SCH (09:06)
[2018-11-03] MEDS: metFORMIN 500 MG TAB PO SCH ×2 (09:06→17:03)
[2018-11-03] MEDS: Loratadine 10 MG TAB PO SCH (09:06)
[2018-11-03] MEDS: Polyethylene Glycol 3350 17 GM Packet PO SCH (09:07)
[2018-11-03] MEDS: Fenofibrate Nanocrystallized 145 MG TAB PO SCH (09:08)
[2018-11-03] MEDS: Fluticasone Propionate Nasal Spray 16 gm Bottle NASAL SCH (09:13)
--- NOTE | 2018-11-03 10:35 | OP ---
DATE OF PROCEDURE: 10/29/2018 PROCEDURE PERFORMED: Debridement of sacral decubitus wound. PREOPERATIVE DIAGNOSIS: Sacral osteomyelitis POSTOPERATIVE DIAGNOSIS: Sacral osteomyelitis HISTORY: Mr. 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 CT showed osteomyelitic fragments at coccyx and recommendation was made to proceed for debridements of the wound with removal of the infected bone followed by VAC placement and long-term antibiotics to try to clear the infection and heal the wound. DESCRIPTION OF PROCEDURE: After informed consent was obtained and appropriate preoperative antibiotics administered, the patient was taken to the operating room. He was placed in supine position and general endotracheal anesthesia was administered. He was then turned in a left lateral decubitus position with appropriate padding and support of the extremities. He was prepped and draped in a standard sterile fashion and the fragmented osteomyelitic bone debrided from the base of the wound, most of the coccyx was debrided. There were some fragmented pieces of bone, which were densely adherence to the surrounding tissues and could not be removed without significant damage to surrounding tissues, but as much unhealthy bone if possible was excised. The surrounding tissues were granulating unhealthy. There was no abscess or necrosis. The wound was irrigated and hemostasis verified. The remaining bone appeared viable. The Wound Care Team was summoned to the operating room for placement of the VAC dressing, following which, the patient was placed back in a supine position, extubated and taken to Recovery in good condition. Estimated blood loss was minimal. There were no complications. Specimen is sacral bone for culture. Job ID: [id number]
[2018-11-03] MEDS: Melatonin 3 MG TAB PO SCH (21:33)
[2018-11-03] MEDS: Rosuvastatin 5 MG TAB PO SCH (21:33)
[2018-11-03] MEDS: Acetaminophen 500 MG TAB PO SCH (21:33)
[2018-11-04] MEDS: MEROPENEM 1 GM/50 ML 1 GM in Premix Bag 1 BAG IVPB SCH ×2 (02:02→08:02)
[2018-11-04] MEDS: Vancomycin HCl 1 GM in Premix Bag 1 BAG IVPB SCH (03:29)
[2018-11-04] MEDS: oxyCODONE 5 MG TAB PO PRN (04:34)
[2018-11-04] MEDS: Fluticasone Propionate Nasal Spray 16 gm Bottle NASAL SCH (08:00)
[2018-11-04] MEDS: Fenofibrate Nanocrystallized 145 MG TAB PO SCH (08:01)
[2018-11-04] MEDS: Loratadine 10 MG TAB PO SCH (08:01)
[2018-11-04] MEDS: Clopidogrel Bisulfate 75 MG TAB PO SCH (08:01)
[2018-11-04] MEDS: Polyethylene Glycol 3350 17 GM Packet PO SCH (08:01)
[2018-11-04] MEDS: Carvedilol 6.25 MG TAB PO SCH (08:02)
[2018-11-04] MEDS: Docusate 100 MG CAP PO SCH (08:02)
[2018-11-04] MEDS: metFORMIN 500 MG TAB PO SCH (08:02)
[2018-11-04] MEDS: HYDROcodone/Acetaminophen 5/325 mg Tablet PO PRN (08:09)
[2018-11-04 08:27] VITALS: BP 156/68; TEMP 97.8
--- NOTE | 2018-11-04 13:54 | PDOC.PN ---
- Subjective Encounter Start Date: 11/04/18 Encounter Start Time: 08:40 Subjective: no sob, feels better -: is getting ready for transfer to snf today - Objective MAR Reviewed: Yes Vital Signs & Weight: Vital Signs (12 hours) Temp Pulse Resp BP BP Pulse Ox 11/04/18 08:02 133/60 11/04/18 08:00 97.8 F 64 18 156/68 H 100 11/04/18 04:10 98.5 F 65 16 125/63 97 Weight Admit Weight 162 lb Weight 162 lb I&O: 11/03/18 11/04/18 11/05/18 06:59 06:59 06:59 Intake Total 1740 720 410 Output Total 2125 1120 300 Balance -385 -400 110 Result Diagrams: 10/31/18 03:27 10/31/18 03:27 Additional Labs: Accuchecks 11/04/18 11/03/18 11/03/18 05:36 20:54 16:13 POC Glucose 102 108 119 H Phys Exam - Physical Examination HEENT: PERRLA, moist MMs Neck: no JVD, supple Respiratory: no wheezing, no rales Cardiovascular: RRR, no significant murmur Gastrointestinal: soft, non-tender, positive bowel sounds wound vac to sacral area, juarez+ Musculoskeletal: no edema, pulses present Neurological: non-focal, moves all 4 limbs Psychiatric: normal affect, A&O x 3 Dx/Plan (1) Sacral osteomyelitis Code(s): M46.28 - OSTEOMYELITIS OF VERTEBRA, SACRAL AND SACROCOCCYGEAL REGION Status: Acute Comment: s/p debridement, in wound vac (2) Chronic indwelling Juarez catheter Code(s): Z96.0 - PRESENCE OF UROGENITAL IMPLANTS Status: Chronic (3) COPD (chronic obstructive pulmonary disease) Status: Chronic Qualifiers: COPD type: unspecified COPD Qualified Code(s): J44.9 - Chronic obstructive pulmonary disease, unspecified (4) Diabetes type 2, controlled Code(s): E11.9 - TYPE 2 DIABETES MELLITUS WITHOUT COMPLICATIONS Status: Chronic Qualifiers: Diabetes mellitus superintendent terminal insulin use: with superintendent terminal use Diabetes mellitus complication status: with unspecified complications Qualified Code(s) : E11.8 - Type 2 diabetes mellitus with unspecified complications; Z79.4 - superintendent terminal (current) use of insulin (5) Dyslipidemia Code(s): E78.5 - HYPERLIPIDEMIA, UNSPECIFIED Status: Chronic Comment: Statin (6) LIBBY (obstructive sleep apnea) Code(s): G47.33 - OBSTRUCTIVE SLEEP APNEA (ADULT) (PEDIATRIC) Status: Chronic Comment: (7) PAD (peripheral artery disease) Code(s): I73.9 - PERIPHERAL VASCULAR DISEASE, UNSPECIFIED Status: Chronic - Plan hemostable -: is being dc'd to [facility] snf today -: on meropenem and vanc till 12/12/2018 -: wound care, to f/u with as adv -: continue coreg, metformin, lantus, plavix, tricor,, trental and crestor * .
--- NOTE | 2018-11-04 13:59 | DIS ---
DATE OF ADMISSION: 10/29/2018 DATE OF DISCHARGE: 11/04/2018 PRIMARY CARE PHYSICIAN: Dr. Sofy Contreras. REASON FOR ADMISSION: Sacral osteomyelitis for debridement and biopsy. DIAGNOSES AT DISCHARGE: 1. Sacrococcygeal decubitus with osteomyelitis, growing back staph. 2. Chronic indwelling suprapubic catheter. 3. Chronic obstructive pulmonary disease. 4. Diabetes mellitus type 2. 5. Dyslipidemia. PROCEDURES: 1. Debridement of sacral decubitus wound. 2. PICC line placement. CONSULTATIONS: Infectious Disease, Dr. Richardson. 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 He was referred to Dr. Richardson, Infectious Disease who asked Surgery to do a debridement and bone culture. The patient was brought into the hospital and Dr. Garrison did the debridement. Dr. Richardson was consulted and recommended antibiotics. The patient did well during his hospitalization. He had wound VAC changes with good improvement. He had an elevated white blood cell count initially that resolved, but no other evidence of sepsis. Microbiology cultures grew back methicillin-resistant Staph aureus, sensitive to vancomycin. Dr. Richardson did recommend meropenem 1 g q.8 hours and vancomycin 1 g q.12 hours until December 12 and has cleared him for discharge. DISCHARGE MANAGEMENT: Location: Discharged back to [facility]. Activity: As tolerated. Diet: Diabetic diet. Therapies: Occupational and physical therapies and wound care. Weekly CBC, CRP and CMP, and twice weekly vancomycin troughs. Equipment supplies for wound care: Wound VAC, change Thursday, Thursday, Thursday. IV therapy instructions: PICC line care. Followup: Follow up with Dr. Richardson in 2 to 3 weeks. DISCHARGE MEDICATIONS: 1. Meropenem 1 g q.8 hours until December 12. 2. Vancomycin 1 g twice a day until December 12, IV. 3. Acetaminophen as needed. 4. Carvedilol 6.25 mg twice a day. 5. Clopidogrel 75 mg daily. 6. Docusate 100 mg twice a day. 7. Fenofibrate 134 mg daily. 8. Fluticasone 1 spray in each nostril daily. 9. Loratadine 10 mg daily. 10. Melatonin 3 mg at night. 11. Metformin 1000 mg twice a day. 12. Trental 400 mg twice a day. 13. MiraLAX 17 g daily. 14. Crestor 5 mg at night. 15. Clonidine as needed. 16. Cranberry extract. 17. Voltaren gel applied 4 times a day. 18. Fish oil 1000 mg daily. 19. Furosemide 20 mg daily. 20. Lantus 20 units subcu daily. 21. Lactulose 20 g twice a day. 22. Lisinopril/hydrochlorothiazide 20/12.5 mg one tablet twice a day. 23. Multivitamin daily. 24. Zofran as needed. 25. Potassium chloride 10 mEq daily. 26. Tramadol extended release one tablet daily. Arranging the details of this discharge took 35 minutes. Job ID: [id number]
== END 2018-11-04 10:00 | DRG 628 ==
LOC: SDC 06:51 → SURG B 12:41
PROVIDERS: ADMIT Surgery; ATTEND Surgery
PROC: 0QB10ZZ Excision of Sacrum, Open Approach (ICD-10-PCS; principal; 2018-10-29)
PROC: 02HV33Z Insertion of Infusion Device into Superior Vena Cava, Percutaneous Approach (ICD-10-PCS; 2018-10-29)
DX: E11.69 Type 2 diabetes mellitus with other specified complication (principal); L89.154 Pressure ulcer of sacral region, stage 4; M46.28 Osteomyelitis of vertebra, sacral and sacrococcygeal region; I42.9 Cardiomyopathy, unspecified; L89.159 Pressure ulcer of sacral region, unspecified stage; E11.622 Type 2 diabetes mellitus with other skin ulcer; J44.9 Chronic obstructive pulmonary disease, unspecified; E78.5 Hyperlipidemia, unspecified; N40.0 Benign prostatic hyperplasia without lower urinary tract symptoms; I25.10 Atherosclerotic heart disease of native coronary artery without angina pectoris; E11.51 Type 2 diabetes mellitus with diabetic peripheral angiopathy without gangrene; Z95.810 Presence of automatic (implantable) cardiac defibrillator; Z87.891 Personal history of nicotine dependence; F10.10 Alcohol abuse, uncomplicated; Z96.0 Presence of urogenital implants; B95.62 Methicillin resistant Staphylococcus aureus infection as the cause of diseases classified elsewhere
CPT/HCPCS: 36415; 36416; 36569; 80048; 85025; 87070; 87077; 87186; 87205; C1751; J0131; J0690; J1644; J2001; J2185; J2370; J2405; J2704; J3010; J3370; J7050

== ENCOUNTER 2018-12-20 13:37 | Outpatient (CLI) | payer MEDICARE, MEDICAID ==
--- NOTE | 2018-12-20 13:49 | PRG ---
DATE OF SERVICE: 12/20/2018 HISTORY: Mr. Al Bobby is a very pleasant 78-year-old gentleman, accompanied by his , who presents to the Wound Center for evaluation of a sacral wound subsequent to intraoperative debridement for sacral osteomyelitis on 10/29/[address] Shreyas Garrison. The patient was seen in consultation by Dr. Олег Richardson of Infectious Diseases during his hospital stay. The patient has received IV antibiotics as per Dr. Richardson and is now receiving p.o. antibiotics as per Infectious Diseases. Negative pressure therapy was initiated intraoperatively, and the patient has been receiving dressing changes of the wound VAC at [facility]. PHYSICAL EXAMINATION: VITAL SIGNS: Temperature 98.0, pulse 72, respirations 20, blood pressure 147/66. Accu-Chek 148. BACK: A sacral wound is present, which measures approximately 2.3 x 3.3 cm. Granulation tissue is present within the wound margins. No purulent drainage is associated with the wound. No erythema of the skin surrounding the wound is present. No maceration of the skin of the periwound is noted. No bone is palpable within the wound margins on exam today. ASSESSMENT AND PLAN: 1. Sacral wound as described above. Negative pressure therapy will be continued with dressing changes of the wound VAC 3 times per week at [facility]. The patient's previously stated that Mr. Bobby had been placed on a specialty mattress. I will see Mr. Bobby again in 4 weeks. The patient's states that Mr. Bobby has a followup appointment with Infectious Diseases. 2. Diabetes mellitus. The patient's Accu-Chek in clinic today is 148. The patient has been reminded that for optimal wound healing, his blood glucoses should remain below 150. 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 4. Hypertension. 5. Benign prostatic hypertrophy. 6. Coronary artery disease. 7. Peripheral vascular disease. 8. Chronic obstructive pulmonary disease. 9. Congestive heart failure. 10. Obstructive sleep apnea. 11. Osteoarthritis. Job ID: [id number]
[2018-12-20] MEDS ORDERED: Sodium Chloride 0.9% 15 ML NEB ONE (15:00)
== END 2018-12-20 13:38 | disposition home or self-care (01) ==
LOC: WCC 13:37
PROVIDERS: ATTEND Family Medicine
DX: S31.000D Unspecified open wound of lower back and pelvis without penetration into retroperitoneum, subsequent encounter (principal); E11.51 Type 2 diabetes mellitus with diabetic peripheral angiopathy without gangrene; I25.10 Atherosclerotic heart disease of native coronary artery without angina pectoris; I11.0 Hypertensive heart disease with heart failure; I50.9 Heart failure, unspecified; A80.30 Acute paralytic poliomyelitis, unspecified; N40.0 Benign prostatic hyperplasia without lower urinary tract symptoms; J44.9 Chronic obstructive pulmonary disease, unspecified; G47.33 Obstructive sleep apnea (adult) (pediatric); M19.90 Unspecified osteoarthritis, unspecified site
CPT/HCPCS: 36416; A4218

== ENCOUNTER 2019-03-07 14:21 | Outpatient (CLI) | payer MEDICARE, MEDICAID ==
[2019-03-07] MEDS ORDERED: Sodium Chloride 0.9% 15 ML NEB ONE (16:55)
--- NOTE | 2019-03-07 17:54 | PRG ---
DATE OF SERVICE: 03/07/2019 HISTORY: Mr. Al Bobby is a very pleasant 78-year-old gentleman, accompanied by his , who presents to the wound center for evaluation of a sacral wound subsequent to intraoperative debridement for sacral osteomyelitis on 10/29/[address] Shreyas Garrison. The patient was seen in consultation by Dr. Олег Richardson of Infectious Diseases during his hospital stay. The patient has received IV antibiotics as per Dr. Richardson and was placed on p.o. antibiotics as per Infectious Diseases. The patient's previously stated that Mr. Bobby was unable to complete the last 2 weeks of his course of p.o. antibiotics due to severe nausea. The patient; however, was recently seen by Dr. Richardson for a followup visit after completing the prescribed course of IV antibiotics and a portion of his course of p.o. antibiotics. Negative pressure therapy was initiated intraoperatively and the patient continues to receive dressing changes of the wound VAC at [facility] [place]. PHYSICAL EXAMINATION: VITAL SIGNS: Temperature 98.0, pulse 63, respirations 16, and blood pressure 113/54. Accu-Chek 139. BACK: A sacral wound is present, which measures approximately 2.5 x 3.0 cm. The dimensions of the wound at the time of the patient's visit on 01/31/2019 were approximately 4.0 x 4.0 cm. Granulation tissue is present within the wound margins. No purulent drainage is associated with the wound. No erythema of the skin surrounding the wound is present. No maceration of the skin of the periwound is noted. No bone is palpable within the wound margins on exam today. ASSESSMENT AND PLAN: 1. Sacral wound as described above. I have recently discussed the treatment plan with the patient's wound care nurse at [facility]. Negative pressure therapy will be continued with dressing changes of the wound VAC at [facility]. The patient's wound care nurse at [facility] states that Mr. Bobby offloads his sacral wound in a consistent manner. Albumin and pre-albumin levels will be obtained. I will discuss the treatment plan with Dr. Олег Richardson of Infectious Diseases specifically in regard to referral to Plastic Surgery for evaluation for flap placement. 2. Diabetes mellitus. The patient's Accu-Chek in clinic today is 139. The patient has been reminded that for optimal wound healing, his blood glucoses should remain below 150. 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 4. Hypertension. 5. Benign prostatic hypertrophy. 6. Coronary artery disease. 7. Peripheral vascular disease. 8. Chronic obstructive pulmonary disease. 9. Congestive heart failure. 10. Obstructive sleep apnea. 11. Osteoarthritis. Job ID: [id number]
== END 2019-03-07 14:22 | disposition home or self-care (01) ==
LOC: WCC 14:21
PROVIDERS: ATTEND Family Medicine
DX: S31.000D Unspecified open wound of lower back and pelvis without penetration into retroperitoneum, subsequent encounter (principal); G83.9 Paralytic syndrome, unspecified; A80.30 Acute paralytic poliomyelitis, unspecified; N40.0 Benign prostatic hyperplasia without lower urinary tract symptoms; E11.51 Type 2 diabetes mellitus with diabetic peripheral angiopathy without gangrene; J44.9 Chronic obstructive pulmonary disease, unspecified; I11.0 Hypertensive heart disease with heart failure; I50.9 Heart failure, unspecified; G47.33 Obstructive sleep apnea (adult) (pediatric); M19.90 Unspecified osteoarthritis, unspecified site
CPT/HCPCS: 97605; A4218

== ENCOUNTER 2019-05-26 10:49 | Outpatient (CLI) | payer MEDICARE, MEDICAID ==
--- NOTE | 2019-05-26 11:33 | PRG ---
DATE OF SERVICE: 05/26/2019 HISTORY: Mr. Al Bobby is a very pleasant 79-year-old gentleman, accompanied by his , who presents to the Wound Center for evaluation of a sacral wound subsequent to intraoperative debridement for sacral osteomyelitis on 10/29/[address] Shreyas Garrison. The patient was seen in consultation by Dr. Олег Richardson of Infectious Diseases during his hospital stay. The patient has received IV antibiotics as per Dr. Richardson and was placed on p.o. antibiotics as per Infectious Diseases. The patient's previously stated that Mr. Bobby was unable to complete the last 2 weeks of his course of p.o. antibiotics due to severe nausea. The patient, however, was seen by Dr. Richardson for followup visit after completing the prescribed course of IV antibiotics and a portion of his course of p.o. antibiotics. Negative pressure therapy was initiated intraoperatively and the patient continues to receive dressing changes of the wound VAC at [facility] [place]. The patient states that he has been seen in consultation by Dr. Artemio Anthony of Plastic Surgery. PHYSICAL EXAMINATION: VITAL SIGNS: Stable, afebrile. BACK: A sacral wound is present, which measures approximately 2.5 x 3.0 cm. The dimensions of the wound at the time of the patient's visit on 03/07/2019 were also approximately 2.5 x 3.0 cm. Granulation tissue is present within the wound margins. No purulent drainage is associated with the wound. No erythema of the skin surrounding the wound is present. No maceration of the skin of the periwound is noted. No bone is palpable within the wound margins on exam today. ASSESSMENT AND PLAN: 1. Sacral wound as described above. Negative pressure therapy will be continued with dressing changes of the wound VAC at [facility]. 2. The patient's wound care nurse at [facility] previously stated that, Mr. Bobby offloads his sacral wound in a consistent manner. The patient states that flap placement was not recommended by Dr. Artemio Anthony due to the requirement of being turned every 30 minutes. [facility] will contact the Wound Center in order to schedule the patient's next followup visit. 3. Diabetes mellitus. The patient's Accu-Chek in clinic today is 139. The patient has been reminded that for optimal wound healing his blood glucoses should remain below 150. 4. 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 5. Hypertension. 6. Benign prostatic hypertrophy. 7. Coronary artery disease. 8. Peripheral vascular disease. 9. Chronic obstructive pulmonary disease. 10. Congestive heart failure. 11. Obstructive sleep apnea. 12. Osteoarthritis. Job ID: [id number]
[2019-05-26] MEDS ORDERED: Sodium Chloride 0.9% 15 ML NEB ONE (13:06)
== END 2019-05-26 10:50 | disposition home or self-care (01) ==
LOC: WCC 10:49
PROVIDERS: ATTEND Family Medicine
DX: T81.89XD Other complications of procedures, not elsewhere classified, subsequent encounter (principal); A80.30 Acute paralytic poliomyelitis, unspecified; N40.0 Benign prostatic hyperplasia without lower urinary tract symptoms; I25.10 Atherosclerotic heart disease of native coronary artery without angina pectoris; E11.51 Type 2 diabetes mellitus with diabetic peripheral angiopathy without gangrene; I11.0 Hypertensive heart disease with heart failure; J44.9 Chronic obstructive pulmonary disease, unspecified; I50.9 Heart failure, unspecified; G47.33 Obstructive sleep apnea (adult) (pediatric); M19.90 Unspecified osteoarthritis, unspecified site
CPT/HCPCS: A4218

== ENCOUNTER 2021-09-06 12:49 | Outpatient (CLI) | payer MEDICARE, MEDICAID ==
[~2021-09-06 12:49] MED LIST changes: +Iopamidol 370 76% 100 ML VIAL ONE; -Sodium Chloride 0.9% 15 ML NEB ONE
== END 2021-09-06 12:50 | disposition home or self-care (01) ==
LOC: CT 12:49
PROVIDERS: ATTEND Family Medicine
DX: L98.422 Non-pressure chronic ulcer of back with fat layer exposed (principal)
CPT/HCPCS: 72193; 82565; Q9967